=== PATIENT | female | born 1945 | race Caucasian/White ===

== ENCOUNTER 2016-11-03 13:34 | Emergency (ER) | payer MEDICARE ==
[2016-11-03 13:59] VITALS: BP 148/106
--- OUTSIDE RECORDS SUMMARY | 2016-11-03 14:28 | XMS REPORT | Continuity of Care Document ---
:1945 Author Organization [facility] ([facility]) Address [place] [address] Phone [phone] Care Team Providers Name Role Phone Jonn, Ajit Primary Care Provider [phone] Source Comments This disclosure is being made pursuant to the Care Everywhere program, applicable federal and state laws, and may not contain all informaitonavailable regarding this patient.[facility] ([facility]) Active Allergies and Adverse Reactions No Known Allergies Current Medications Prescription Sig. Disp. Refills Start Date End Date Status buPROPion Take 1 Tab by mouth 10/15/2008 Active (WELLBUTRIN-SR) 150 2 times daily mg SR tablet 12 hour nitroglycerin 0.[address] 1 tablet 10/18/2008 Active SL tablet (0.4MG) by Sublingual route at the first sign of an attack; may repeat every 5 minutes, until relief; if pain persists after a total of 3 tablets in 15 minutes, promptmedical attentionis recommended aspirin 81 mg EC Take 81 mg by mouth Active tablet daily levothyroxine 50 mcg Take 50 mcg by mouth Active tablet every morning before breakfast omeprazole 40 mg Take 40 mg by mouth Active enteric coated daily capsule lamoTRIgine 100 mg take 1 tablet (100 3 12/06/2015 Active tablet mg) by oral route 2 times per day for 30 days LORazepam 1 mg Take 1 mg by mouth Active tablet every 12 hours as needed. atenolol 50 mg Take 1 tablet (50 mg 90 tablet 3 12/18/2015 Active tablet total) by mouth daily. atorvastatin 40 mg Take 1 tablet (40 mg 90 tablet 3 12/23/2015 Active tablet total) by mouth daily. Active Problems Problem Noted Date CAD in [place] artery 12/16/2015 Overview: Formatting of this note may be different from the original. 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: Cath (EF.70, NWMA, 50% Ostial LM, 90% Distal CX, 30% Ostial RCA, 50% Mid PLB, Right Dominant) - 10/15/2008 PCI (Stent: Distal CX (2.5x12 Express 2)) - 10/17/2008 STRESS TESTS: MPI (EF.60, Abnormal Abnormal stress test: 1) Very small lateral infarct at the apex, 2) No inducible ischemia, 3) LVEF 60%) - 11/15/2008 Essential hypertension 12/16/2015 Pure hypercholesterolemia 12/16/2015 Social History Tobacco Use Types Packs/Day Years Used Date Current Every Day Smoker Last Filed Vital Signs Vital Sign Reading Time Taken Blood Pressure 140/76 12/18/2015 10:42 AM CDT Pulse 64 12/18/2015 10:42 AM CDT Temperature - - Respiratory Rate - - Height 1.676 m (5' 6") 12/18/2015 10:42 AM CDT Weight 70.761 kg (156 lb) 12/18/2015 10:42 AM CDT Body Mass Index 25.19 12/18/2015 10:42 AM CDT Oxygen Saturation - - Plan of Care Date Type Specialty Providers Description 12/16/2016 Appointment [facility] Cuadra, Chief Comp: Patient MD Reported Reason For [address] [place] [address] [phone] (Fax) Health Maintenance Due Date Last Done Comments HCV Screening 1945 Hepatitis B Vaccine (1 of 3 - Primary Series) 1945 Tdap Vaccine 1956 Lipid Disorder Screening 1963 Td Vaccine 1963 Mammogram 1985 Colonoscopy 1995 Zoster Vaccine 2005 Osteoporosis Screening (DXA Bone Density) 2010 Pneumococcal Vaccine (1 of 2 - PCV13) 2010 Influenza Vaccine: Seasonal (#1) 01/13/2016 Results from Last 3 Months Not on file
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
[2016-11-03 14:53] LABS: Hematocrit 44.7 % (37.0-47.0); Hemoglobin 14.3 gm/dL (12.5-16.0); Mean Cell Volume 97.4 fl (78-100); Mean Corpuscular Hemoglobin 31.2 pg (27-31); Mean Platelet Volume 11.4 fl (6.0-9.5); Neutrophil # 4.9 K/mm3 (1.3-6.0); Neutrophil % 63.9 % (42-75.0); Platelet Count 244 K/mm3 (150-450); Red Blood Count 4.59 M/mm3 (4.2-5.4); Red Cell Distribution Width 12.8 % (11.5-14.0); White Blood Count 7.7 K/mm3 (4.0-10.5)
[2016-11-03 15:02] LABS: Urine Bilirubin Negative (NEGATIVE); Urine Blood Negative /ul (NEGATIVE); Urine Ketone Negative (NEGATIVE); Urine Nitrite Negative (NEGATIVE); Urine Protein Negative (NEGATIVE); Urine Specific Gravity <=1.005 SP.GR. (1.005-1.010); Urine Urobilinogen Normal (NORMAL)
[2016-11-03 15:13] LABS: Urine Appearance Clear; Urine Bacteria None Seen; Urine Color Yellow; Urine RBC None Seen /hpf (0-5); Urine WBC None Seen /hpf (0-5)
[2016-11-03 15:14] LABS: Anion Gap 14.7 mmol/L (6.8-13.8); BUN/Creatinine Ratio 14.3 (9.0-21.6); Bilirubin, Total 0.5 mg/dL (0.0-1.1); Ca. Corrected For Albumin 9.5 mg/dL (8.4-10.2); Calcium * 9.8 mg/dL (7.9-10.9); Carbon Dioxide 27.3 mmol/L (24-32.6); TSH * 1.103 uIU/mL (0.358-3.74); Total Protein 8.5 gm/dL (6.2-8.2)
[2016-11-03 15:17] LABS: Cocaine Ur Negative (NEGATIVE); Urine Barbiturate Negative (NEGATIVE); Urine Benzodiazepines Negative (NEGATIVE); Urine Opiates Negative (NEGATIVE); Urine PCP Negative (NEGATIVE); Urine THC Negative (NEGATIVE)
[2016-11-03 15:21] LABS: Prothrombin Time (Patient) 10.8 Seconds (9.4-11.4)
[2016-11-03 15:36] LABS: INR 1.04 INR (0.90-1.10); Partial Thrombolplastin Time 19.8 Seconds (24-32)
== END 2016-11-03 14:58 | disposition left against medical advice (07) ==
LOC: ER 13:34
DX: R41.82 Altered mental status, unspecified (principal); F17.200 Nicotine dependence, unspecified, uncomplicated; Z53.29 Procedure and treatment not carried out because of patient's decision for other reasons; E03.9 Hypothyroidism, unspecified; F32.9 Major depressive disorder, single episode, unspecified; I10 Essential (primary) hypertension; Z95.5 Presence of coronary angioplasty implant and graft

== ENCOUNTER 2016-11-05 18:47 | Emergency (ER) | payer MEDICARE ==
[2016-11-05 19:11] LABS: Hematocrit 40.4 % (37.0-47.0); Hemoglobin 13.1 gm/dL (12.5-16.0); Mean Cell Volume 96.4 fl (78-100); Mean Corpuscular Hemoglobin 31.3 pg (27-31); Mean Corpuscular Hgb Conc 32.4 g/dl (32-36); Mean Platelet Volume 11.1 fl (6.0-9.5); Neutrophil # 4.7 K/mm3 (1.3-6.0); Neutrophil % 61.8 % (42-75.0); Platelet Count 222 K/mm3 (150-450); Red Blood Count 4.19 M/mm3 (4.2-5.4); White Blood Count 7.6 K/mm3 (4.0-10.5)
[2016-11-05 19:23] LABS: Urine Bilirubin Negative (NEGATIVE); Urine Blood Negative /ul (NEGATIVE); Urine Ketone Negative (NEGATIVE); Urine Nitrite Negative (NEGATIVE); Urine Protein Negative (NEGATIVE); Urine Specific Gravity <=1.005 SP.GR. (1.005-1.010); Urine Urobilinogen Normal (NORMAL)
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
--- OUTSIDE RECORDS SUMMARY | 2016-11-05 19:24 | XMS REPORT | Continuity of Care Document ---
:1945 Author Organization [facility] ([facility]) [place] [address] Phone [phone] Care Team Providers Name Role Phone Jonn, Ajit Primary Care Provider [phone] Source Comments This disclosure is being made pursuant to the Care Everywhere program, applicable federal and state laws, and may not contain all informaitonavailable regarding this patient.[facility] ([facility]) Active Allergies and Adverse Reactions No Known [...] Active Problems Problem Noted Date CAD in [place] artery 12/16/2015 Overview: Formatting of this note may be different from the original. 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
[2016-11-05 19:42] LABS: ALT 22 U/L (19-67); AST 24 U/L (0-48); Albumin * 3.6 gm/dl (3.4-5.0); Alkaline Phosphatase * 104 U/L (50-170); BUN/Creatinine Ratio 12.7 (9.0-21.6); Bilirubin, Total 0.3 mg/dL (0.0-1.1); Blood Urea Nitrogen 14 mg/dL (3-23); Ca. Corrected For Albumin 9.6 mg/dL (8.4-10.2); Calcium * 9.6 mg/dL (7.9-10.9); Carbon Dioxide 26.9 mmol/L (24-32.6); Chloride 107 mmol/L (97-106); Glucose * 97 mg/dL (70-110); Potassium 3.9 mmol/L (3.4-4.6); Sodium 143 mmol/L (132-142); Total Protein 7.7 gm/dL (6.2-8.2)
[2016-11-05 19:42] LABS: Urine Appearance Clear; Urine Bacteria None Seen; Urine Color Yellow; Urine RBC None Seen /hpf (0-5); Urine WBC None Seen /hpf (0-5)
[2016-11-05 19:45] LABS: Cocaine Ur Negative (NEGATIVE); Urine Barbiturate Negative (NEGATIVE); Urine Benzodiazepines Negative (NEGATIVE); Urine Opiates Negative (NEGATIVE); Urine PCP Negative (NEGATIVE); Urine THC Negative (NEGATIVE)
[2016-11-05 20:49] VITALS: BP 182/67
== END 2016-11-05 21:25 | disposition home or self-care (01) ==
LOC: ER 18:47
DX: F31.9 Bipolar disorder, unspecified (principal); R40.4 Transient alteration of awareness
CPT/HCPCS: 36415; 70450; 80053; 80307; 81001; 84443; 85025; 94762; 99282; G0481

== ENCOUNTER 2016-11-06 02:48 | Emergency (ER) | payer MEDICARE ==
--- NOTE | 2016-11-06 03:01 | ERNOTE ---
Medical Problem HPI - General Chief Complaint: General Assessment Source: patient Exam Limitations: clinical condition - Immun/Allergies/Home Medications Immunizations: IMMUNIZATION HX Immunizations Up to Date Yes History of Influenza Vaccine Yes Hx Pneumococcal Vaccination Yes Allergies/Adverse Reactions: Allergies perfume Allergy (Mild, Verified 11/06/16 03:00) Headache soap Allergy (Mild, Verified 11/06/16 03:00) Headache Home Medications: HOME MEDICATIONS Atenolol [Tenormin] 50 mg PO DAILY 10/30/13 [Last Taken 10/30/13] Levothyroxine Sodium [Unithroid] 50 mcg PO DAILY 10/30/13 [Last Taken 10/30/13] Bupropion HCl [Wellbutrin Xl] 150 mg PO DAILY 11/14/13 [Last Taken Unknown] Omeprazole [Prilosec] 60 mg PO DAILY 10/28/14 [Last Taken Unknown] Atorvastatin Calcium [Lipitor] 40 mg PO DAILY 03/04/16 [Last Taken Unknown] lamoTRIgine [Lamictal] 100 mg PO BID 11/03/16 [Last Taken Unknown] Potassium Chloride [Klor-Con 10] 10 meq PO BID 11/05/16 [Last Taken Unknown] - History of Present History Narrative: Pt states she became short of breath and felt like her throat was closing Timing: intermittent, resolved prior to arrival Severity: mild Review of Systems - Review of Systems Constitutional: Present: recent illness EYE: Present: no symptoms reported ENT: Present: throat swelling Respiratory: Present: shortness of breath Cardiology: Present: no symptoms reported Gastrointestinal/Abdominal: Present: no symptoms reported Genitourinary: Present: no symptoms reported Musculoskeletal: Present: no symptoms reported Skin: Present: no symptoms reported Neurological: Present: no symptoms reported Endocrine: Present: no symptoms reported Hematologic/Lymphatic: Present: no symptoms reported Psych: Present: no symptoms reported - Patient's Past Medical History Patient History - Medical: Anxiety, Arthritis, Bipolar, Depression, GERD, Hypothyroidism Patient History - Cardiac/Respiratory: Hypertension, Myocardial Infarction Patient History - Cancer: No Hx of Cancer Patient History - Surgical Procedures: Appendectomy, Cholecystectomy, Cardiac stent, Hysterectomy Patient History - Other: None - Social History Living Situations: home Abuse History: No History of abuse Psych History: Hx of Depression Smoking Status: Current every day smoker Alcohol Use: rarely Drug Use: none - Immunizations Immunizations Up to Date: Yes Hx Pneumococcal Vaccination: Yes History of Influenza Vaccine: Yes Physical Exam - Physical Exam General Appearance: Present: wd/wn, alert, no apparent distress Eye Exam: Normal inspection: bilateral, PERRL: bilateral Ears, Nose, Throat: Present: normal ENT inspection, normal pharynx. Absent: tonsillar swelling Neck: Present: normal inspection, nontender, supple Respiratory: Present: no respiratory distress, normal breath sounds, no accessory muscle use, lungs clear Cardiovascular/Chest: Present: regular rate, rhythm, no murmur, normal peripheral pulses Gastrointestinal/Abdominal: Present: normal bowel sounds, nontender, nondistended Extremity Exam: Present: normal inspection, normal range of motion, no edema Neurological Exam: Present: alert, oriented, normal mood/affect, no motor/ sensory deficits Skin Exam: Present: normal color, warm/dry Lymphatic Exam: Present: no adenopathy ED Progress - Results and Orders Patient's Lab Results:: I have reviewed the patient's lab results. Results and Orders: Laboratory Tests 11/06/16 03:07 Troponin I Less than 0.017 B-Natriuretic Peptide 189 - Vital Signs Patient's Vital Signs:: I have reviewed the patient's vital signs. Vital Signs: Vital Signs 11/05/16 11/06/16 21:25 02:49 Temperature 37.0 C 36.9 C Pulse Rate 79 Respiratory 18 Rate Blood Pressure 182/67 146/77 O2 Sat by Pulse 99 Oximetry - X-Ray X-Ray #1 X-Ray: chest Interpretation: Interp. by me X-ray Comments: No effusions or infiltrate - Progress/Reassessment Chief Complaint: General Assessment Departure - Departure Clinical Impression: Shortness of breath Disposition: Home Follow Up Needed Condition: Good Additional Instructions: See your regular doctor next week for follow up. See Dr. Pérez as soon as possible to discuss your medications and if you need a change
[2016-11-06 03:40] LABS: BNP * 189 pg/mL (5-325); Troponin I Less than 0.017 ng/ml (0.00-0.10)
--- OUTSIDE RECORDS SUMMARY | 2016-11-06 04:28 | XMS REPORT | Continuity of Care Document ---
:1945 Author Organization [facility] ([facility]) Address [place] [address] Phone [phone] Care Team Providers Name Role Phone Jonn, Ajit Primary Care Provider [phone] Source Comments This disclosure is being made pursuant to the Care Everywhere program, applicable federal and state laws, and may not contain all informaitonavailable regarding this patient.[facility] ([facility]) Active Allergies and Adverse Reactions [...] Active Problems Problem Noted Date CAD in [place] artery 12/16/2015 Overview: Formatting of this note may be different from the original. 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
[2016-11-06 05:35] VITALS: BP 137/85
== END 2016-11-06 05:26 | disposition home or self-care (01) ==
LOC: ER 02:48
DX: R06.02 Shortness of breath (principal); I10 Essential (primary) hypertension; E03.9 Hypothyroidism, unspecified; I25.2 Old myocardial infarction; Z72.0 Tobacco use

== ENCOUNTER 2016-11-09 02:11 | Observation (INO) | payer MEDICARE ==
[2016-11-09 02:34] LABS: Urine Bilirubin Negative (NEGATIVE); Urine Blood Negative /ul (NEGATIVE); Urine Ketone Negative (NEGATIVE); Urine Nitrite Negative (NEGATIVE); Urine Protein Negative (NEGATIVE); Urine Specific Gravity <=1.005 SP.GR. (1.005-1.010); Urine Urobilinogen Normal (NORMAL)
[2016-11-09 02:42] LABS: Urine Appearance Clear; Urine Bacteria None Seen; Urine Color Pale Yellow; Urine RBC None Seen /hpf (0-5); Urine WBC None Seen /hpf (0-5)
--- NOTE | 2016-11-09 02:48 | ERNOTE ---
Neuro HPI ER Record Date of Service: 11/09/16 Presenting Symptoms: confusion Source: patient Exam Limitations: clinical condition Immunizations: IMMUNIZATION HX Immunizations Up to Date Yes History of Influenza Vaccine Yes Hx Pneumococcal Vaccination No Allergies/Adverse Reactions: Allergies Allergy/AdvReac Type Severity Reaction Status Date / Time perfume Allergy Mild Headache Verified 11/09/16 02:20 soap Allergy Mild Headache Verified 11/09/16 02:20 Home Medications: HOME MEDICATIONS Atenolol [Tenormin] 50 mg PO DAILY 10/30/13 [Last Taken 10/30/13] Levothyroxine Sodium [Unithroid] 50 mcg PO DAILY 10/30/13 [Last Taken 10/30/13] Bupropion HCl [Wellbutrin Xl] 150 mg PO DAILY 11/14/13 [Last Taken Unknown] Atorvastatin Calcium [Lipitor] 40 mg PO DAILY 03/04/16 [Last Taken Unknown] Potassium Chloride [Klor-Con 10] 10 meq PO BID 11/05/16 [Last Taken Unknown] Esomeprazole Magnesium [Nexium] 40 mg PO DAILY 11/09/16 [Last Taken Unknown] - History of Present Illness Narrative: Patient is a 71-year-old female with multiple visits to the ER over the last 2 weeks for confusion. Patient lives alone alert to person place and time but admits to being confused in thought. Today she followed somebody in in her car and the individual became concerned call in the police because patient not sure why she was following her. She denies any pain, recent illness, or history of above. She remembers coming to the emergency room for the visit above and has no insight into why she is not acting her normal self. Patient denies fever or chills. She denies any changes in her bowels. She denies any changes in her urinary habits. Patient denies any recent falls. She states she rarely drinks alcohol and does not use illicit drugs. Patient denies taking excessive prescription medications and states she has been compliant with those that have been prescribed. Patient brought to the emergency room by local police. Date (Duration): 11/09/16 Time (Timing): 02:45 Onset: gradual onset Severity: moderate Context: other - no known injury reported. - Character of Deficits New weakness: Present: other - no weakness present Altered sensation: Present: other - patient seems to have increased sense of smell reporting noticing lye smell in the air at time of arrival Additional Deficits: Present: other - main problem is slow thought Process Baseline Cognition: Present: alert, oriented x 4 Baseline Gait: Present: walks w/o assistance Associated Symptoms: Reports: confused Prior Treament: Reports: recently seen, similar symptoms before Review of Systems - Review of Systems Constitutional: Present: no symptoms reported EYE: Present: no symptoms reported ENT: Present: no symptoms reported Respiratory: Present: no symptoms reported Cardiology: Present: no symptoms reported Gastrointestinal/Abdominal: Present: no symptoms reported Genitourinary: Present: no symptoms reported Musculoskeletal: Present: no symptoms reported Skin: Present: no symptoms reported Neurological: Present: other - patient has had confusion for at least the last few weeks. Endocrine: Present: no symptoms reported Hematologic/Lymphatic: Present: no symptoms reported Psych: Present: no symptoms reported - Patient's Past Medical History Patient History - Medical: Anxiety, Arthritis, Bipolar, Depression, GERD, Hypothyroidism Patient History - Cardiac/Respiratory: Hypertension, Myocardial Infarction Patient History - Cancer: No Hx of Cancer Patient History - Surgical Procedures: Appendectomy, Cholecystectomy, Cardiac stent, Hysterectomy Patient History - Other: None - Family History Mother Family History - Medical: Father Family History - Medical: - Social History Living Situations: alone Abuse History: No History of abuse Psych History: Hx of Anxiety, Hx of Depression, Hx of Bipolar Disorder Smoking Status: Current every day smoker Have you smoked in the past 12 months: Yes Do you dip or chew tobacco: No Alcohol Use: rarely Drug Use: none - Immunizations Immunizations Up to Date: Yes Hx Pneumococcal Vaccination: No History of Influenza Vaccine: Yes ED Progress - Vital Signs Vital Signs: Vital Signs 11/09/16 11/09/16 02:13 02:24 Temperature 36.9 C Pulse Rate 78 76 Respiratory 12 17 Rate Blood Pressure 155/80 155/80 O2 Sat by Pulse 99 100 Oximetry - CT/Ultrasound CT/Ultrasound Narrative: CAT scan head performed showing global atrophy with ventriculomegaly somewhat this portion to the degree of sulcal prominence. Consider possible normal pressure hydrocephalus. Periventricular and deep white matter hypodensities consistent with chronic microvascular ischemic changes. - Progress/Reassessment Chief Complaint: Altered Mental Status Plan - Plan Plan: Patient admitted and primary provided contacted. Departure Clinical Impression: Confusion - Departure Disposition: [facility] Condition: Good
[2016-11-09 02:50] LABS: Cocaine Ur Negative (NEGATIVE); Urine Barbiturate Negative (NEGATIVE); Urine Benzodiazepines Negative (NEGATIVE); Urine Opiates Negative (NEGATIVE); Urine PCP Negative (NEGATIVE); Urine THC Negative (NEGATIVE)
[2016-11-09 03:18] LABS: Hemoglobin 13.3 gm/dL (12.5-16.0); Mean Corpuscular Hemoglobin 30.7 pg (27-31); Mean Corpuscular Hgb Conc 31.7 g/dl (32-36); Mean Platelet Volume 11.5 fl (6.0-9.5); Neutrophil # 4.4 K/mm3 (1.3-6.0); Neutrophil % 64.2 % (42-75.0); Platelet Count 214 K/mm3 (150-450); Red Blood Count 4.33 M/mm3 (4.2-5.4); Red Cell Distribution Width 12.9 % (11.5-14.0); White Blood Count 6.8 K/mm3 (4.0-10.5)
[2016-11-09 03:42] LABS: Albumin * 3.6 gm/dl (3.4-5.0); Anion Gap 11.5 mmol/L (6.8-13.8); BUN/Creatinine Ratio 16.2 (9.0-21.6); Bilirubin, Total 0.3 mg/dL (0.0-1.1); Ca. Corrected For Albumin 9.5 mg/dL (8.4-10.2); Calcium * 9.5 mg/dL (7.9-10.9); Carbon Dioxide 29.4 mmol/L (24-32.6); Potassium 3.9 mmol/L (3.4-4.6); TSH * 0.93 uIU/mL (0.358-3.74); Total Protein 7.6 gm/dL (6.2-8.2)
[2016-11-09] MEDS ORDERED: NORMAL SALINE 1,000 ML IV PRN (04:24)
--- OUTSIDE RECORDS SUMMARY | 2016-11-09 04:35 | XMS REPORT | Continuity of Care Document ---
:1945 Author Organization [facility] ([facility]) [place] [address] Phone [phone] Care Team Providers Name Role Phone Jonn, Ajit Primary Care Provider [phone] Source Comments This disclosure is being made pursuant to the Care Everywhere program, applicable federal and state laws, and may not contain all informaitonavailable regarding this patient.[facility] ([facility]) Active Allergies and Adverse Reactions No Known [...] Active Problems Problem Noted Date CAD in [place] artery 12/16/2015 Overview: Formatting of this note may be different from the original. 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
--- OUTSIDE RECORDS SUMMARY | 2016-11-09 04:52 | XMS REPORT | Continuity of Care Document ---
:1945 Author Organization [facility] ([facility]) Address [place] [address] Phone [phone] Care Team Providers Name Role Phone Jonn, Ajit Primary Care Provider [phone] Source Comments This disclosure is being made pursuant to the Care Everywhere program, applicable federal and state laws, and may not contain all informaitonavailable regarding this patient.[facility] ([facility]) Active Allergies and Adverse Reactions No Known [...] Active Problems Problem Noted Date CAD in [place] artery 12/16/2015 Overview: Formatting of this note may be different from the original. 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
[2016-11-09] MEDS: NORMAL SALINE 1,000 ML IV PRN ×2 (05:29→09:32)
--- NOTE | 2016-11-09 05:57 | HP ---
Chief Complaint - Chief Complaint Date of Service: 11/09/16 Time of Service: 06:17 Chief Complaint: acute delirium History of Present Illness: Patient is a 71-year-old female pt of Dr. Lunsford with a PMH significant for: bipolar disorder, HTN, hypothyroidism, anxiety, depressing, and previous GA who presented to the ER once again this evening with multiple prior visits to the ER over the last 2 weeks for confusion. Patient lives alone alert to person place and time but admits to being confused in thought. Today she followed somebody to her car and the individual became concerned and called the police because patient not sure why she was following her when questioned. She denies any pain, recent illness, or history of the above. She in fact however remember coming to the emergency room for her multiple prior visit and has no insight into why she is not acting her normal self. Patient denies fever or chills, changes in her bowel or bladder habits, recent falls. She states she rarely drinks alcohol and does not use illicit drugs. Patient denies taking excessive prescription medications and states she has been compliant with those that have been prescribed. Work up in ER once again was essentially negative. CT of head results as followed: global atrophy with ventriculomegaly somewhat this portion to the degree of sulcal prominence. Consider possible normal pressure hydrocephalus. Periventricular and deep white matter hypodensities consistent with chronic microvascular ischemic changes. Laboratory findings were unremarkable except for an elevated ESR of 58. UA and drug screen negative. She was started on a 1L bolus and will be admitted to observation for further evaluation and treatment. - Patient's Past Medical History Patient History - Medical: Anxiety, Arthritis, Bipolar, Depression, GERD, Hypothyroidism Patient History - Cardiac/Respiratory: Hypertension, Myocardial Infarction Patient History - Cancer: No Hx of Cancer Patient History - Surgical Procedures: Appendectomy, Cholecystectomy, Cardiac stent, Hysterectomy Patient History - Other: None - Family History Mother Family History - Medical: Father Family History - Medical: - Social History Living Situations: alone Abuse History: No History of abuse Psych History: Hx of Anxiety, Hx of Depression, Hx of Bipolar Disorder Smoking Status: Current every day smoker Have you smoked in the past 12 months: Yes Do you dip or chew tobacco: No Alcohol Use: rarely Drug Use: none - Immunizations Immunizations Up to Date: Yes Hx Pneumococcal Vaccination: No History of Influenza Vaccine: Yes Review Of Systems (GEN) - Review of Systems Generalized/Overall Review: Present: No Symptoms Reported EENTM: Present: No Symptoms Reported Respiratory: Present: No Symptoms Reported Cardiac: Present: No Symptoms Reported Abdominal: Present: No Symptoms Reported Genitourinary: Present: No Symptoms Reported Musculoskeletal: Present: No Symptoms Reported Neurological: Present: No Symptoms Reported Skin: Present: No Symptoms Reported Endocrine: Present: No Symptoms Reported Immunizations: IMMUNIZATION HX Immunizations Up to Date Yes History of Influenza Vaccine Yes Hx Pneumococcal Vaccination No Allergies/Adverse Reactions: Allergies Allergy/AdvReac Type Severity Reaction Status Date / Time perfume Allergy Mild Headache Verified 11/09/16 02:20 soap Allergy Mild Headache Verified 11/09/16 02:20 Home Medications: HOME MEDICATIONS Atenolol [Tenormin] 50 mg PO DAILY 10/30/13 [Last Taken 10/30/13] Levothyroxine Sodium [Unithroid] 50 mcg PO DAILY 10/30/13 [Last Taken 10/30/13] Bupropion HCl [Wellbutrin Xl] 150 mg PO DAILY 11/14/13 [Last Taken Unknown] Omeprazole [Prilosec] 60 mg PO DAILY 10/28/14 [Last Taken Unknown] Atorvastatin Calcium [Lipitor] 40 mg PO DAILY 03/04/16 [Last Taken Unknown] lamoTRIgine [Lamictal] 100 mg PO BID 11/03/16 [Last Taken Unknown] Potassium Chloride [Klor-Con 10] 10 meq PO BID 11/05/16 [Last Taken Unknown] Exam - Exam Vital Signs: Vital Signs - Last Taken Temp 36.9 C 11/09/16 02:13 Pulse 74 11/09/16 05:33 Resp 16 11/09/16 05:33 BP 138/72 11/09/16 05:33 Pulse Ox 96 11/09/16 05:33 Constitutional: Present: Alert, Oriented x3, Cooperative, No distress ENT Exam: Present: normal ENT inspection Eye Exam: bilateral eye: normal inspection, PERRL Back Exam: Present: normal inspection Respiratory: Present: chest non-tender, lungs clear, normal breath sounds, no respiratory distress, no accessory muscle use Cardiovascular/Chest: Present: normal peripheral pulses, regular rate, rhythm, no chest tenderness, no edema, no gallop, no JVD, no murmur Peripheral Pulses: dorsalis-pedis (R): 2+, dorsalis-pedis (L): 2+, radial (R): 2 +, radial (L): 2+ Abdomen: Present: Normal bowel sounds, soft, nontender, nondistended, no rebound tenderness, no hepatospenomegaly Extremity: Present: normal range of motion, non-tender, normal inspection, no pedal edema, no calf tenderness, normal capillary refill Skin Exam: Present: normal color, warm/dry, no cyanosis Lymphatic: Present: no adenopathy Neurologic: Present: no motor/sensory deficits, alert, normal mood/affect, oriented x 3 Appearance: Present: appropriate appearance, appropriate insight, neat, no memory impairment Eye contact: Present: cooperative, good eye contact, normal speech Thoughts: Present: normal thought pattern, no apparent hallucination Diagnostic Studies: Laboratory Results Laboratory Tests 11/09/16 11/09/16 11/09/16 03:10 03:10 03:10 WBC Hgb Hct Plt Count ESR 58 H Sodium 144 H Potassium 3.9 Chloride 107 H BUN 17 Creatinine 1.05 Random Glucose 102 Lactic Acid, Venous 1.4 Total Bilirubin 0.3 AST 20 ALT 24 Alkaline Phosphatase 96 TSH 0.930 11/09/16 03:15 WBC 6.8 Hgb 13.3 Hct 42.0 Plt Count 214 ESR Sodium Potassium Chloride BUN Creatinine Random Glucose Lactic Acid, Venous Total Bilirubin AST ALT Alkaline Phosphatase TSH Assessment/Plan - Assessment/Plan (1) Mental status change Assessment: PT with multiple episodes of acute delirium over the past two weeks. Is able to recall specific events to each time, however unsure what leads her to her confused state or when she becomes confused. Oriented x3 during examination, able to recall from short and snf memory. No other neuro deficits noted. She is agreeable to stay and be further evaluated. No s/s of hydrocephalus, no urinary or gait impairments. Suspect that this could be more of a mental than medical issue. Sees Dr. Pérez, states that she is consistent with taking her prescribed medication. Will consult him for further recommendations. - CT/Ultrasound CT/Ultrasound Narrative: CAT scan head performed showing global atrophy with ventriculomegaly somewhat this portion to the degree of sulcal prominence. Consider possible normal pressure hydrocephalus. Periventricular and deep white matter hypodensities consistent with chronic microvascular ischemic changes. Plan: -Consult Dr. Pérez-spoke with Osiris Almanza as Beto is out of town. Problem: Acute Qualifiers: Altered mental status type: transient alteration of awareness Qualified Code(s): R40.4 - Transient alteration of awareness (2) Bipolar 1 disorder Assessment: As above Problem: Chronic (3) CAD (coronary artery disease) Assessment: Stable Plan: -Continue home medications -Healthy heart diet Problem: Chronic Qualifiers: Associated angina: without angina (4) GERD (gastroesophageal reflux disease) Assessment: Stable Plan: -Continue home medications Problem: Chronic (5) HTN (hypertension) Assessment: Stable Plan: -VS Q4H -Continue home medications Problem: Chronic Qualifiers: Hypertension type: essential hypertension Qualified Code(s): I10 - Essential (primary) hypertension
[2016-11-09] MEDS: PANTOPRAZOLE SODIUM 40 MG TABLET.EC PO SCH (07:45)
[2016-11-09] MEDS: LEVOTHYROXINE SODIUM 50 MCG TABLET PO SCH (07:45)
[2016-11-09] MEDS: ATENOLOL 50 MG TABLET PO SCH (08:05)
[2016-11-09] MEDS: buPROPion HCL 150 MG TAB.SR.24H PO SCH (08:05)
[2016-11-09] MEDS: POTASSIUM CHLORIDE 10 MEQ TABLET.SA PO SCH ×2 (08:05→16:14)
[2016-11-09] MEDS ORDERED: ATORVASTATIN CALCIUM 40 MG TABLET PO SCH (09:00)
[2016-11-09] MEDS ORDERED: lamoTRIgine 100 MG TABLET PO SCH (09:00)
[2016-11-09] MEDS: LORATADINE 10 MG TABLET PO SCH (09:07)
[2016-11-09] MEDS: ROSUVASTATIN CALCIUM 10 MG TABLET PO SCH (20:41)
[2016-11-09] MEDS ORDERED: MAGNESIUM HYDROXIDE 30 ML UDC PO PRN (20:59)
--- NOTE | 2016-11-10 05:45 | DS ---
(1) Mental status change Problem: Acute Qualifiers: Altered mental status type: transient alteration of awareness Qualified Code(s): R40.4 - Transient alteration of awareness (2) Bipolar 1 disorder Problem: Chronic (3) CAD (coronary artery disease) Problem: Chronic Qualifiers: Associated angina: without angina (4) GERD (gastroesophageal reflux disease) Problem: Chronic (5) HTN (hypertension) Problem: Chronic Qualifiers: Hypertension type: essential hypertension Qualified Code(s): I10 - Essential (primary) hypertension Description of Stay: Patient is a 71-year-old female pt of Dr. Lunsford with a PMH significant for: bipolar disorder, HTN, hypothyroidism, anxiety, depressing, and previous [place] who was admitted with acute mental status change after multiple visits to the ER over the last 2 weeks for confusion. Patient lives alone alert to person place and time but admits to being confused in thought. The day of admission she followed somebody to her car and the individual became concerned and called the police because patient not sure why she was following her when questioned. She denies any pain, recent illness, or history of the above. She in fact however remember coming to the emergency room for her multiple prior visit and has no insight into why she is not acting her normal self. Patient denies fever or chills, changes in her bowel or bladder habits, recent falls. She states she rarely drinks alcohol and does not use illicit drugs. Patient denies taking excessive prescription medications and states she has been compliant with those that have been prescribed. Work up in ER once again was essentially negative. CT of head results as followed: global atrophy with ventriculomegaly somewhat this portion to the degree of sulcal prominence. Consider possible normal pressure hydrocephalus. Periventricular and deep white matter hypodensities consistent with chronic microvascular ischemic changes. Laboratory findings were unremarkable except for an elevated ESR of 58. UA and drug screen negative. During her admission she remained alert and oriented x3, no episodes of confusion. Procedures Performed: none Discharge Disposition: Home self care Disposition: Home self-care Condition: Good Discharge Activity: Activity as tolerated Discharge Diet: General/regular food Referrals: Ajit Lunsford MD [Primary Care Provider] - Complete Home Medications List: Complete Home Medication List: Atenolol [Tenormin] 50 mg PO DAILY 10/30/13 Levothyroxine Sodium [Unithroid] 50 mcg PO DAILY 10/30/13 Bupropion HCl [Wellbutrin Xl] 150 mg PO DAILY 11/14/13 Atorvastatin Calcium [Lipitor] 40 mg PO DAILY 03/04/16 Potassium Chloride [Klor-Con 10] 10 meq PO BID 11/05/16 Esomeprazole Magnesium [Nexium] 40 mg PO DAILY 11/09/16
[2016-11-10] MEDS: LEVOTHYROXINE SODIUM 50 MCG TABLET PO SCH (07:22)
[2016-11-10] MEDS: PANTOPRAZOLE SODIUM 40 MG TABLET.EC PO SCH (07:22)
--- NOTE | 2016-11-10 08:18 | PN ---
Subjective - Date and Time Seen Date: 11/10/16 Time: 08:15 Subjective Narrative: Feeling better but still unable to explain why she is in the hospital Objective - Review of Systems Generalized/Overall Review: Reports: No Symptoms Reported EENTM: Reports: No Symptoms Reported Respiratory: Reports: No Symptoms Reported Cardiac: Reports: No Symptoms Reported Abdominal: Reports: No Symptoms Reported Genitourinary Symptoms: Reports: No Symptoms Reported Neurological: Reports: No Symptoms Reported Skin: Reports: No Symptoms Reported - Vitals Vitals: Last Vital Signs Temp 36.6 C 11/10/16 07:25 Pulse 66 11/10/16 07:25 Resp 18 11/10/16 07:25 BP 150/69 11/10/16 07:25 Pulse Ox 93 11/10/16 07:25 - Exam Constitutional: Present: Alert, Oriented x3, Cooperative Respiratory: Present: lungs clear, normal breath sounds Cardiovascular/Chest: Present: regular rate, rhythm Abdomen: Present: soft, nontender Extremity: Present: normal range of motion Skin Exam: Present: normal color, warm/dry Assessment/Plan - Problems/Diagnosis (1) Hydrocephalus Problem: Acute Narrative: We'll order MRI for possible normal pressure hydrocephalus (2) Mental status change Problem: Acute Qualifiers: Altered mental status type: transient alteration of awareness Qualified Code(s): R40.4 - Transient alteration of awareness Narrative: Psychiatry consultation is still pending (3) CAD (coronary artery disease) Problem: Chronic Qualifiers: Associated angina: without angina
[2016-11-10] MEDS: POTASSIUM CHLORIDE 10 MEQ TABLET.SA PO SCH ×2 (08:30→16:49)
[2016-11-10] MEDS: ATENOLOL 50 MG TABLET PO SCH (08:30)
[2016-11-10] MEDS: buPROPion HCL 150 MG TAB.SR.24H PO SCH (08:30)
[2016-11-10] MEDS: LORATADINE 10 MG TABLET PO SCH (08:34)
[2016-11-10] MEDS ORDERED: ESOMEPRAZOLE MAGNESIUM 40 MG PO SCH (09:00)
--- NOTE | 2016-11-10 11:36 | PN ---
Subjective - Date and Time Seen Date: 11/10/16 Time: 11:05 Subjective Narrative: Patient was attempting to leave hospital when I arrived for consult. She was walking down hallway to exit in a hospital gown, carrying her winter coat and sunglasses as she headed to the exit. Two nurses were attempting to redirect. Patient stated that she saw something in one of the cabinets and felt that it should not be there (the lift system) and everything was wrong so she needed to leave. She was escorted back to her room and reassured that what she saw was in all the patient rooms and the nurses demonstrated how to work this equipment to reassure her. Objective Objective Narrative: Patient is alert and oriented x 3. She does have some intermittent confusion. She states that she loses gaps of time. She states that she does not know what happens to her during this lost time. States that she is taking her medications as prescribed. She talks about her past "mental breakdown" which she states was an acute manic episode many years ago and she was hospitalized. She denies that what she is experiencing now is similar to what she had experienced with kamille or depression. She states that she sometimes thinks things aren't quite right. For example, thinks that Dr. Lunsford may not be who he says he is because she thinks he has gained alot of weight in a short amount of time. Assured her that he is who he says he is. She is aware of who Dr. Pérez is and recognizes me from his office. Spoke for approx. 30 minutes. No acute delirium noted at this time. 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 No evidence of depression or kamille. Discussed importance of obtaining an MRI on her brain, which Dr. Lunsford has ordered. She agrees to this and agrees to stay in the hospital until she is discharged. Proceed with MRI of brain. No medication changes recommended. Recommend neurology consult. - Review of Systems Generalized/Overall Review: Reports: No Symptoms Reported Neurological: Reports: Headache - States that she has a frequent pressure or mild headache in back of head., Other - Intermittent confusion. - Vitals Vitals: Last Vital Signs Temp 36.6 C 11/10/16 07:25 Pulse 66 11/10/16 08:30 Resp 18 11/10/16 07:25 BP 150/69 11/10/16 08:30 Pulse Ox 93 11/10/16 07:25 - Exam Constitutional: Present: Alert, Oriented x3, Cooperative, No distress Appearance: Present: appropriate appearance, impaired insight, impaired recent memory Eye contact: Present: cooperative, good eye contact, normal speech Thoughts: Present: delusions - Mild intermittent delusions., normal mood /affect Assessment/Plan Plan Narrative: Proceed with MRI of brain. Recommend a neurology consult. - Problems/Diagnosis (1) Mental status change Problem: Acute Qualifiers: Altered mental status type: transient alteration of awareness Qualified Code(s): R40.4 - Transient alteration of awareness
[2016-11-10] MEDS ORDERED: HALOPERIDOL LACTATE 5 MG/ML VIAL IM STA (16:32)
[2016-11-10] MEDS ORDERED: HALOPERIDOL LACTATE 5 MG/ML VIAL IM PRN (16:48)
[2016-11-10] MEDS: ROSUVASTATIN CALCIUM 10 MG TABLET PO SCH (20:11)
[2016-11-11] MEDS: LEVOTHYROXINE SODIUM 50 MCG TABLET PO SCH (06:21)
[2016-11-11] MEDS: PANTOPRAZOLE SODIUM 40 MG TABLET.EC PO SCH (06:21)
[2016-11-11] MEDS: POTASSIUM CHLORIDE 10 MEQ TABLET.SA PO SCH ×2 (08:35→16:12)
[2016-11-11] MEDS: LORATADINE 10 MG TABLET PO SCH (08:36)
[2016-11-11] MEDS: ATENOLOL 50 MG TABLET PO SCH (08:36)
[2016-11-11] MEDS: buPROPion HCL 150 MG TAB.SR.24H PO SCH (08:36)
--- NOTE | 2016-11-11 08:38 | PN ---
Subjective - Date and Time Seen Date: 11/11/16 Time: 08:32 Subjective Narrative: Patient is rescheduled for MRI with anesthesia this afternoon. will get neurology consult. Objective - Review of Systems Generalized/Overall Review: Reports: No Symptoms Reported EENTM: Reports: No Symptoms Reported Respiratory: Reports: No Symptoms Reported Cardiac: Reports: No Symptoms Reported Abdominal: Reports: No Symptoms Reported Genitourinary Symptoms: Reports: No Symptoms Reported Musculoskeletal Complaints: Reports: No Symptoms Reported Neurological: Reports: No Symptoms Reported Skin: Reports: No Symptoms Reported Endocrine: Reports: No Symptoms Reported Misc: All systems neg except as marked - Unreliable due to her mental status - Vitals Vitals: Last Vital Signs Temp 36.8 C 11/10/16 23:13 Pulse 59 L 11/11/16 02:01 Resp 18 11/10/16 23:13 BP 107/43 11/10/16 23:13 Pulse Ox 95 11/10/16 23:13 - Exam Constitutional: Present: Alert - x 2, Cooperative ENT Exam: Present: hearing grossly normal Neck: Present: supple Breasts: Present: Exam deferred Respiratory: Present: decreased breath sounds, No rales, No wheezing Cardiovascular/Chest: Present: regular rate, rhythm, no JVD, no murmur Abdomen: Present: Normal bowel sounds, soft, nontender, nondistended Extremity: Present: no pedal edema, no calf tenderness Assessment/Plan - Problems/Diagnosis (1) Hydrocephalus Problem: Acute Narrative: for MRI this afternoon. (2) Mental status alteration Problem: Acute Qualifiers: Altered mental status type: disorientation Qualified Code(s): R41.0 - Disorientation, unspecified Narrative: Osiris Yuan saw the patient-[no medication changes . recommended MRI and neurology consult. (3) CAD (coronary artery disease) Problem: Chronic Qualifiers: Associated angina: without angina
[2016-11-11] MEDS: ROSUVASTATIN CALCIUM 10 MG TABLET PO SCH (20:32)
[2016-11-12] MEDS: LEVOTHYROXINE SODIUM 50 MCG TABLET PO SCH (07:08)
[2016-11-12] MEDS: PANTOPRAZOLE SODIUM 40 MG TABLET.EC PO SCH (07:08)
--- NOTE | 2016-11-12 08:51 | DS ---
(1) Hydrocephalus Problem: Suspected (2) Mental status change Problem: Acute Qualifiers: Altered mental status type: transient alteration of awareness Qualified Code(s): R40.4 - Transient alteration of awareness (3) CAD (coronary artery disease) Problem: Chronic Qualifiers: Associated angina: without angina Description of Stay: 71-year-old white female was admitted because of intermittent episodes of being confused and disoriented. Head CT showed some ventricular enlargement so a brain MRI was done showing also ventricular enlargement but no description consistent with normal pressure hydrocephalus. Psychiatry Consultation was obtained and patient will follow-up with the psychiatrist. On the day of discharge patient is alert and oriented. Does not have any urination problem. She has normal gait and she is alert and oriented 3 therefore in my opinion she does not have any any sign and symptom NORMAL pressure hydrocephalus. Patient refused to have a lumbar spinal tap. She was given instruction to follow up with Dr. Domínguez and not to drive.she will be referred to neurologist Procedures Performed: none Discharge Disposition: Home self care Disposition: Home self-care Condition: Good Discharge Activity: Activity as tolerated Discharge Diet: Low fat/chol Referrals: Ajit Lunsford MD [Primary Care Provider] - Additional Patient Instructions (free text): [facility]. Complete Home Medications List: Complete Home Medication List: Atenolol [Tenormin] 50 mg PO DAILY 10/30/13 Levothyroxine Sodium [Unithroid] 50 mcg PO DAILY 10/30/13 Bupropion HCl [Wellbutrin Xl] 150 mg PO DAILY 11/14/13 Atorvastatin Calcium [Lipitor] 40 mg PO DAILY 03/04/16 Potassium Chloride [Klor-Con 10] 10 meq PO BID 11/05/16 Esomeprazole Magnesium [Nexium] 40 mg PO DAILY 11/09/16
[2016-11-12] MEDS: LORATADINE 10 MG TABLET PO SCH (09:30)
[2016-11-12] MEDS: POTASSIUM CHLORIDE 10 MEQ TABLET.SA PO SCH (09:30)
[2016-11-12] MEDS: ATENOLOL 50 MG TABLET PO SCH (09:31)
[2016-11-12] MEDS: buPROPion HCL 150 MG TAB.SR.24H PO SCH (09:31)
[2016-11-12 10:54] VITALS: BP 129/66
== END 2016-11-12 12:30 | disposition home health service (06) ==
LOC: ER 02:11 → MS 04:48
PROVIDERS: ADMIT Nurse Practitioner Gerontology; ATTEND Internal Medicine
DX: R40.4 Transient alteration of awareness (principal); I25.10 Atherosclerotic heart disease of native coronary artery without angina pectoris; K21.9 Gastro-esophageal reflux disease without esophagitis; I10 Essential (primary) hypertension; F31.89 Other bipolar disorder; E03.9 Hypothyroidism, unspecified; F17.210 Nicotine dependence, cigarettes, uncomplicated
CPT/HCPCS: 36415; 70450; 70553; 80053; 80307; 81001; 82140; 83605; 84443; 85025; 85652; 93005; 96372; 99284; G0378

== ENCOUNTER 2017-04-24 17:42 | Emergency (ER) | payer MEDICARE ==
--- NOTE | 2017-04-24 18:10 | ERNOTE ---
Trauma/Assault HPI - General Stated Complaint: FALL/HIP PAIN Time Seen by Provider: 04/24/17 18:00 Source: patient Exam Limitations: no limitations - Immun/Allergies/Home Medications Immunizations: IMMUNIZATION HX Immunizations Up to Date Yes History of Influenza Vaccine Yes Hx Pneumococcal Vaccination No Allergies/Adverse Reactions: Allergies perfume Allergy (Mild, Verified 11/09/16 02:20) Headache soap Allergy (Mild, Verified 11/09/16 02:20) Headache Home Medications: HOME MEDICATIONS Atenolol [Tenormin] 50 mg PO DAILY 10/30/13 [Last Taken 10/30/13] Levothyroxine Sodium [Unithroid] 50 mcg PO DAILY 10/30/13 [Last Taken 10/30/13] Bupropion HCl [Wellbutrin Xl] 150 mg PO DAILY 11/14/13 [Last Taken Unknown] Atorvastatin Calcium [Lipitor] 40 mg PO DAILY 03/04/16 [Last Taken Unknown] Potassium Chloride [Klor-Con 10] 10 meq PO BID 11/05/16 [Last Taken Unknown] Esomeprazole Magnesium [Nexium] 40 mg PO DAILY 11/09/16 [Last Taken Unknown] Lamotrigine [Lamictal] 100 mg PO BID 04/24/17 [Last Taken Unknown] Naproxen [Naprosyn] 500 mg PO BID #60 tablet 04/24/17 [Last Taken Unknown] - History of Present Illness Narrative: Patient was walking two dogs and her foot got caught in a crack of the sidewalk and she tripped and went sideways striking her right hip. She was able walk-in , although she does have a limp and she is concerned to make sure that she doesn 't have some cervical fracture. She rates the pain as moderate in severity and she does have an antalgic gait. Location Occurred: Reports: street Pain Location: Reports: lower extremity - right hip Method of Injury: Reports: other - tripped Loss of Consciousness: Reports: no loss of consciousness Associated Symptoms - Trauma: Reports: denies symptoms Review of Systems - Review of Systems Constitutional: Present: See HPI EYE: Present: no symptoms reported ENT: Present: no symptoms reported Respiratory: Present: no symptoms reported Cardiology: Present: no symptoms reported Gastrointestinal/Abdominal: Present: no symptoms reported Genitourinary: Present: no symptoms reported Musculoskeletal: Present: joint pain - right hip Skin: Present: no symptoms reported Neurological: Present: no symptoms reported Endocrine: Present: no symptoms reported Hematologic/Lymphatic: Present: no symptoms reported Psych: Present: no symptoms reported - Patient's Past Medical History Patient History - Medical: Anxiety, Arthritis, Bipolar, Depression, GERD, Hypothyroidism Patient History - Cardiac/Respiratory: Hypertension, Myocardial Infarction Patient History - Cancer: No Hx of Cancer Patient History - Surgical Procedures: Appendectomy, Cholecystectomy, Cardiac stent, Hysterectomy Patient History - Other: None - Family History Mother Family History - Medical: Father Family History - Medical: - Social History Living Situations: alone Abuse History: No History of abuse Psych History: Hx of Anxiety, Hx of Depression, Hx of Bipolar Disorder Smoking Status: Current every day smoker Have you smoked in the past 12 months: Yes Do you dip or chew tobacco: No Alcohol Use: rarely Drug Use: none - Immunizations Immunizations Up to Date: Yes Hx Pneumococcal Vaccination: No History of Influenza Vaccine: Yes Physical Exam - Physical Exam General Appearance: Present: wd/wn, alert, moderate distress Head Exam: Present: normal inspection Eye Exam: Normal inspection: bilateral, PERRL: bilateral Ears, Nose, Throat: Present: normal ENT inspection, H, normal pharynx Neck: Present: normal inspection, nontender Respiratory: Present: no respiratory distress, normal breath sounds, no accessory muscle use, chest nontender, lungs clear Cardiovascular/Chest: Present: regular rate, rhythm, no murmur, normal peripheral pulses Gastrointestinal/Abdominal: Present: normal bowel sounds, nontender, nondistended, soft, no organomegaly Rectal Exam: Present: deferred Pelvic Exam: Present: deferred Back Exam: Present: normal inspection, normal range of motion Extremity Exam: Present: normal inspection, normal range of motion, no edema, bony tenderness - tenderness to the greater trochanter area of the right femur Neurological Exam: Present: alert, oriented, normal mood/affect Skin Exam: Present: normal color, warm/dry Lymphatic Exam: Present: no adenopathy ED Progress - Vital Signs Vital Signs: Vital Signs 04/24/17 17:52 Temperature 36.7 C Pulse Rate 76 Respiratory 16 Rate Blood Pressure 159/75 O2 Sat by Pulse 99 Oximetry - X-Ray X-Ray #1 X-Ray: hip Interpretation: Reviewed by me - Progress/Reassessment Chief Complaint: Fall Plan - Plan Plan: Patient appears to incurred a hip contusion and will be started on Naprosyn and she agrees to follow-up with her family physician this week. Departure Clinical Impression: Contusion, hip Qualifiers: Encounter type: initial encounter Laterality: right Qualified Code(s): S70.01XA - Contusion of right hip, initial encounter - Departure Disposition: Home self-care Condition: Good Instructions: Hip Pointer, [id number], Contusion, [id number] Referrals: Ajit Lunsford MD [Primary Care Provider] - Prescriptions: Naproxen [Naprosyn] 500 mg PO BID #60 tablet Critical Care Time - Critical Care Critical Time Spent:: No Total time (mins) Spent:: 0
[2017-04-24] MEDS ORDERED: NAPROXEN SODIUM 550 MG TABLET PO ONE ×2 (18:42→18:50)
[2017-04-24] MEDS ORDERED: NAPROXEN SODIUM 550 MG TABLET ONE (18:48)
[2017-04-24 18:55] VITALS: BP 133/75
== END 2017-04-24 18:54 | disposition home or self-care (01) ==
LOC: ER 17:42
DX: S70.01XA Contusion of right hip, initial encounter (principal); F17.200 Nicotine dependence, unspecified, uncomplicated; W01.0XXA Fall on same level from slipping, tripping and stumbling without subsequent striking against object, initial encounter; Y93.K1 Activity, walking an animal; Y92.414 Local residential or business street as the place of occurrence of the external cause

== ENCOUNTER 2018-08-05 14:08 | Observation (INO) ==
--- NOTE | 2018-08-05 14:32 | ERNOTE ---
Neuro HPI ER Record Date of Service: 08/05/18 Presenting Symptoms: impaired speech Time Seen by Provider: 08/05/18 14:10 Source: patient, family Exam Limitations: clinical condition Immunizations: IMMUNIZATION HX Immunizations Up to Date Yes History of Influenza Vaccine No Hx Pneumococcal Vaccination No Allergies/Adverse Reactions: Allergies Allergy/AdvReac Type Severity Reaction Status Date / Time perfume Allergy Mild migraines Verified 08/05/18 14:11 soap Allergy Mild migraines Verified 08/05/18 14:11 Home Medications: HOME MEDICATIONS Bupropion HCl [Wellbutrin Xl] 150 mg PO DAILY 11/14/13 [Last Taken 11/08/17] Lamotrigine [Lamictal] 100 mg PO BID 04/24/17 [Last Taken 11/08/17] potassium chloride ER 10 mEq tablet,extended release 10 meq PO BID #60 tab 02/09/18 [Last Taken Unknown] levothyroxine 50 mcg tablet 50 mcg PO DAILY #90 tab 05/12/18 [Last Taken Unknown] omeprazole 40 mg capsule,delayed release 40 mg PO DAILY #90 cap 06/15/18 [Last Taken Unknown] Atenolol [Tenormin] 50 mg PO BID 08/05/18 [Last Taken Unknown] Atorvastatin Calcium 40 mg PO DAILY 08/05/18 [Last Taken Unknown] - Pain Score Pain Score #1 Pain Score: 0 - History of Present Illness Narrative: The patient is a 73 year old female who presents with son via EMS for altered mental status which has been present for 1 week. There are associated symptoms of frequent falls. The patient denies pain. There are no alleviating factors. There are no aggravating factors. Previous treatments have included: none. The past medical history includes: AAA, Bipolar, HTN, hypothyroid and [place]. The social history is negative. The patient has had no known ill contacts. Patient's son reports that patient has fallen 3 times in the past week. Patient received CT head last week due to falls. EMS reports that patient was having difficulty with speech as well as incontinence upon arrival. No history of seizures reported by family. Son states that patient has had increased AMS. Review of Systems - Narrative Narrative: Patient poor historian due to clinical condition. Son unaware of recent symptoms. - Review of Systems Constitutional: Absent: recent illness - none reported by family, patient denies, fever EYE: Present: no symptoms reported - denied by patient ENT: Present: other - tongue pain Respiratory: Present: no symptoms reported Cardiology: Present: no symptoms reported Gastrointestinal/Abdominal: Present: no symptoms reported Genitourinary: Present: no symptoms reported Musculoskeletal: Present: no symptoms reported Skin: Present: no symptoms reported Neurological: Present: other Endocrine: Present: no symptoms reported Hematologic/Lymphatic: Present: no symptoms reported Psych: Present: no symptoms reported All Other Systems: All systems neg except as marked Medical History (Last Reviewed 08/05/18 @ 14:26 by MAGDALENA Barrios) Dyspnea on exertion (Acute) Jelena had 1 episode toward the end of a PT visit where she suddenly became SOB. It lasted 5-10 min. There were no other symptoms and specifically denies any CP. BP was up a little in PT but is normal today. Falling episodes (Chronic) Declining mobility (Chronic) Muscle weakness (Chronic) Flu-like symptoms (Acute) Fatigue (Chronic) Onset ~ 1mo. ago. Has progressively worsened. low back pain getting worse. Raynauds phenomenon (Chronic) Onset Date: Unknown Hypothyroidism (Chronic) Onset Date: Unknown Hypertension (Chronic) Onset Date: Unknown mild to moderate Hyperlipidemia due to dietary fat intake (Chronic) Onset Date: Unknown Bipolar disorder (Chronic) Onset Date: Unknown Breakdowns in 1988 & 2001 AAA (abdominal aortic aneurysm) Onset Date: 04/02/16 Atherosclerotic occlusive disease Onset Date: Unknown Postmenopausal atrophic vaginitis Onset Date: 07/16/15 Cataract Onset Date: Unknown Myocardial infarction Onset Date: 2002 Surgical History: Surgical History (Last Reviewed 08/05/18 @ 14:26 by MAGDALENA Barrios) History of aortic valve replacement with bioprosthetic valve Onset Date: 07/22/15 Hx of bladder repair surgery Onset Date: Unknown Hx of cholecystectomy Onset Date: 04/01/84 Hx of colonoscopy Onset Date: 11/09/17 - redundant colon. Recheck in 10 years Hx of colonoscopy with polypectomy Onset Date: 09/23/06 - hyperplastic polyp. Acute/chronic inflammation suggesting ulcerative colitis Hx of hysterectomy Onset Date: 06/01/87 ANDRE, LSO Hx of tonsillectomy Onset Date: Unknown Hx of tubal ligation Onset Date: 05/02/81 Family History: Family History (Last Reviewed 08/05/18 @ 14:26 by MAGDALENA Barrios) Father , at 62 CAD (coronary artery disease) Mother , in her 90s Dementia Brother CVA (cerebral vascular accident) Brother Dementia Social History: Preferred Language Kyrgyz Smoking Status Never smoker Abuse History No History of abuse Psych History Hx of Bipolar Disorder Alcohol Use none Drug Use none (Last Updated 07/06/18 @ 13:56 by Justo Olivo DO) No Social History Section defined Physical Exam - Physical Exam General Appearance: Present: alert, no apparent distress Head Exam: Present: normal inspection, no tenderness w palpation, contusions - healed abrasion to occiput Eye Exam: Normal inspection: bilateral, PERRL: bilateral, EOMI: bilateral Ears, Nose, Throat: Present: other - tender swollen area to right lateral tongue Neck: Present: normal inspection, nontender, full range of motion Respiratory: Present: no respiratory distress, normal breath sounds, no accessory muscle use, lungs clear Cardiovascular/Chest: Present: regular rate, rhythm, no murmur Gastrointestinal/Abdominal: Present: normal bowel sounds, nontender, nondistended, soft, no organomegaly Neurological Exam: Present: alert, no motor/sensory deficits, 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 Absent: motor weakness Skin Exam: Present: normal color, warm/dry Hamilton Coma Scale - Assess Eye Opening: Spontaneous Motor: Obeys Commands Verbal: Confused - Total Coma Scale Total: 14 Initial Stroke Assessment - Date/Time of assessment Stroke Scale Date: 08/05/18 Stroke Scale Time: 14:28 - NIH Stroke Scale Level of Consciousness: Alert LOC Questions (Year and Age): Answers neither correctly LOC Commands (open/close eyes/fist): Performs both correctly Lateral Gaze Paresis: None Visual Field Loss: No visual loss Facial Palsy: Normal movement Right Arm Motor (10 sec hold): No drift Left Arm Motor (10 sec hold): No drift Right Leg Motor (5 sec hold): No drift Left Leg Motor (5 sec hold): No drift Limb Ataxia (finger/nose heel/sullivan): Absent Sensory Loss (pinprick arms/legs/face): No sensory loss Language Aphasia (description/naming/reading): No aphasia; normal Dysarthria (speech clarity): Normal articulation Neglect Inattention (visual/tactile/auditory/spatial/person): No neglect Initial Stroke Scale Score:: 2 Progress - Date and Time Seen: Date and Time: 08/05/18 15:38 Discussed results with , due to alteration as well as unspecified if seizure occurred will admit observation for monitoring. 08/05/18 16:01 Patient reports she did not take routine medications todays. Will administer dose of scheduled atenolol due to hypertension. - Results and Orders Patient's Lab Results:: I have reviewed the patient's lab results. - Vital Signs Patient's Vital Signs:: I have reviewed the patient's vital signs. Vital Signs: Vital Signs 08/05/18 14:09 Temperature 36.6 C Pulse Rate 99 Respiratory Rate 16 Blood Pressure 176/96 H O2 Sat by Pulse Oximetry 95 - EKG EKG #1 EKG: NSR, nonspecific ST T wave changes EKG read: Reviewed by me - X-Ray X-Ray #1 X-Ray: chest Interpretation: Reviewed by me X-ray Comments: X-RAY REPORT ~[id number] RAD/Chest Single View *~ Exam Date: 08/05/2018 14:40 Ordering Physician: Awilda Pandya [employer] HISTORY: TIA Possible CVA Additional history from technologist: Altered mental status. TECHNIQUE: Single portable AP view of the chest was obtained at 1440 hours. COMPARISONS: 11/06/2016 FINDINGS: Chest Single View *: Normal inflation of lungs. No definite consolidation. Pulmonary vasculature is normal. No pneumothorax or pleural fluid collections apparent. Cardiac size within normal limits. Mild tortuosity of the thoracic aorta with overlying vascular calcifications, stable. Trachea is in normal position given patient positioning. Osseous structures are grossly intact. IMPRESSION: No acute cardiopulmonary findings. Electronically signed by Jorge Marquez M.D.. - Progress/Reassessment Chief Complaint: Altered Mental Status Progress:: Unchanged Departure Clinical Impression: Frequent falls Altered mental status, unspecified Qualifiers: Altered mental status type: unspecified Qualified Code(s): R41.82 - Altered mental status, unspecified - Departure Disposition: Still a patient Condition: Fair
[2018-08-05 14:51] LABS: Albumin * 3.4 gm/dl (3.4-5.0); Anion Gap 16.3 mmol/L (6.8-13.8); BUN/Creatinine Ratio 20.5 (9.0-21.6); Bilirubin, Total 0.7 mg/dL (0.0-1.1); Ca. Corrected For Albumin 9.6 mg/dL (8.4-10.2); Calcium * 9.4 mg/dL (7.9-10.9); Carbon Dioxide 25.6 mmol/L (24-32.6); Potassium 3.9 mmol/L (3.4-4.6); Total Protein 7.9 gm/dL (6.2-8.2)
[2018-08-05 15:07] LABS: INR 1.26 INR (0.92-1.08); Partial Thrombolplastin Time 18.9 Seconds (24-32); Prothrombin Time (Patient) 12.4 Seconds (9.1-10.7)
[2018-08-05 15:09] LABS: Urine Appearance Clear (CLEAR); Urine Bacteria None Seen; Urine Bilirubin Negative (NEGATIVE); Urine Blood 5 /ul (NEGATIVE); Urine Color Yellow; Urine Ketone 5 mg/dL (NEGATIVE); Urine Nitrite Negative (NEGATIVE); Urine Protein 100 mg/dL (NEGATIVE); Urine RBC 0-5 /hpf (0-5); Urine Specific Gravity 1.025 SP.GR. (1.005-1.010); Urine Urobilinogen Normal (NORMAL); Urine WBC None Seen /hpf (0-5); Urine pH 6.5 pH (5.0-7.0)
[2018-08-05 15:25] LABS: CRP 3.2 mg/dL (0.0-0.9); Troponin I 0.029 ng/mL (0.00-0.10)
[2018-08-05 15:58] LABS: Hematocrit 42.5 % (37.0-47.0); Hemoglobin 14.1 gm/dL (12.5-16.0); Mean Cell Volume 93.6 fl (78-100); Mean Corpuscular Hemoglobin 31.1 pg (27-31); Mean Corpuscular Hgb Conc 33.2 g/dl (32-36); Mean Platelet Volume 11.1 fl (8-12.5); Neutrophil # 9.1 K/mm3 (1.3-6.0); Neutrophil % 80.5 % (42-75.0); Platelet Count 241 K/mm3 (150-450); Red Blood Count 4.54 M/mm3 (4.2-5.4); Red Cell Distribution Width 12.3 % (11.5-14.0); White Blood Count 11.3 K/mm3 (4.0-10.5)
[2018-08-05] MEDS ORDERED: ATENOLOL 50 MG TABLET PO ONE (16:01)
[2018-08-05] MEDS ORDERED: ATENOLOL 50 MG TABLET ONE (16:02)
--- NOTE | 2018-08-05 22:17 | HP ---
Chief Complaint - Chief Complaint Date of Service: 08/05/18 Time of Service: 20:30 Chief Complaint: Multiple falls, weakness, altered mental status, possible seizure(s) History of Present Illness: Jelena Singer is a 73 yo wh. fe who had onset of weakness, 3 falls unwitnessed, mental confusion, and had bit her tongue either from one of her falls or possibly a seizure for which she has no history.Jelena has a flat aFFECT BUT IT HER USUAL AFFECT. She is c/o upper back pain where she fell today. This is all new for her. Etiology to be determined. Medical History (Last Reviewed 08/05/18 @ 16:47 by Lisa Santana RN) Dyspnea on exertion (Acute) Jelena had 1 episode toward the end of a PT visit where she suddenly became SOB. It lasted 5-10 min. There were no other symptoms and specifically denies any CP. BP was up a little in PT but is normal today. Falling episodes (Chronic) Declining mobility (Chronic) Muscle weakness (Chronic) Flu-like symptoms (Acute) Fatigue (Chronic) Onset ~ 1mo. ago. Has progressively worsened. low back pain getting worse. Raynauds phenomenon (Chronic) Onset Date: Unknown Hypothyroidism (Chronic) Onset Date: Unknown Hypertension (Chronic) Onset Date: Unknown mild to moderate Hyperlipidemia due to dietary fat intake (Chronic) Onset Date: Unknown Bipolar disorder (Chronic) Onset Date: Unknown Breakdowns in 1988 & 2001 AAA (abdominal aortic aneurysm) Onset Date: 04/02/16 Atherosclerotic occlusive disease Onset Date: Unknown Postmenopausal atrophic vaginitis Onset Date: 07/16/15 Cataract Onset Date: Unknown Myocardial infarction Onset Date: 2002 Surgical History: Surgical History (Last Reviewed 08/05/18 @ 16:47 by Lisa Santana RN) History of aortic valve replacement with bioprosthetic valve Onset Date: 01/27 Hx of bladder repair surgery Onset Date: Unknown Hx of cholecystectomy Onset Date: 04/01/84 Hx of colonoscopy Onset Date: 11/09/17 - redundant colon. Recheck in 10 years Hx of colonoscopy with polypectomy Onset Date: 09/23/06 - hyperplastic polyp. Acute/chronic inflammation suggesting ulcerative colitis Hx of hysterectomy Onset Date: 06/01/87 ANDRE, [facility] Hx of tonsillectomy Onset Date: Unknown Hx of tubal ligation Onset Date: 05/02/81 Family History: Family History (Last Reviewed 08/05/18 @ 16:47 by Lisa Santana RN) Father , at 62 CAD (coronary artery disease) Mother , in her 90s Dementia Brother CVA (cerebral vascular accident) Brother Dementia Social History: Patient Lives/Resources Home Utilized Preferred Language [place] Do you have any restoration or No cultural preference? Smoking Status Never smoker Have you smoked in the past 12 No months Abuse History No History of abuse Psych History Hx of Bipolar Disorder Alcohol Use none Drug Use none (Last Updated 07/06/18 @ 13:56 by Justo Olivo DO) No Social History Section defined Review Of Systems (GEN) - Review of Systems Generalized/Overall Review: Present: Weakness, Malaise, Fatigue EENTM: Present: Other - sore tongue from a biting. Respiratory: Present: No Symptoms Reported Cardiac: Present: No Symptoms Reported Abdominal: Present: No Symptoms Reported Genitourinary: Present: No Symptoms Reported Musculoskeletal: Present: Joint Pain - L shoulder pain, Back Pain Neurological: Present: Depressed, Seizure - possible Skin: Present: No Symptoms Reported Endocrine: Present: No Symptoms Reported Additional Comments: history of bipolar depression Immunizations: IMMUNIZATION HX Immunizations Up to Date Yes History of Influenza Vaccine No Hx Pneumococcal Vaccination No Allergies/Adverse Reactions: Allergies Allergy/AdvReac Type Severity Reaction Status Date / Time perfume Allergy Mild migraines Verified 08/05/18 14:11 soap Allergy Mild migraines Verified 08/05/18 14:11 Home Medications: HOME MEDICATIONS Bupropion HCl [Wellbutrin Xl] 150 mg PO DAILY 11/14/13 [Last Taken 11/08/17] Lamotrigine [Lamictal] 100 mg PO BID 04/24/17 [Last Taken 11/08/17] potassium chloride ER 10 mEq tablet,extended release 10 meq PO BID #60 tab 02/09/18 [Last Taken Unknown] levothyroxine 50 mcg tablet 50 mcg PO DAILY #90 tab 05/12/18 [Last Taken Unknown] omeprazole 40 mg capsule,delayed release 40 mg PO DAILY #90 cap 06/15/18 [Last Taken Unknown] Atenolol [Tenormin] 50 mg PO BID 08/05/18 [Last Taken Unknown] Atorvastatin Calcium 40 mg PO DAILY 08/05/18 [Last Taken Unknown] Exam - Exam Vital Signs: Vital Signs - Last Taken Temp 37.4 C 08/05/18 19:24 Pulse 82 08/05/18 19:24 Resp 16 08/05/18 19:24 BP 171/78 H 08/05/18 19:24 Pulse Ox 96 08/05/18 19:24 Constitutional: Present: Alert, Oriented x3, Cooperative, Well developed, Well nourished, Mild distress, Elderly ENT Exam: Present: normal ENT inspection, other - tongue bruise Eye Exam: bilateral eye: normal inspection, PERRL, EOMI Neck: Present: limited range of motion, stiff neck Back Exam: Present: normal inspection, no vertebral tenderness, other - paraspinous muscles are sore and tight Breasts: Present: Exam deferred Respiratory: Present: chest non-tender Cardiovascular/Chest: Present: normal peripheral pulses, regular rate, rhythm, no chest tenderness, no edema, no gallop, no JVD, no murmur, no rub Peripheral Pulses: carotid (R): 2+, carotid (L): 2+, radial (R): 2+, radial (L): 2+ Abdomen: Present: Normal bowel sounds, soft, nontender, nondistended, no rebound tenderness, no hepatospenomegaly, no masses /Rectal: Present: Exam deferred Extremity: Present: normal range of motion, normal inspection, no pedal edema, no calf tenderness, normal capillary refill, pelvis stable Skin Exam: Present: normal color, warm/dry, no cyanosis Lymphatic: Present: no adenopathy 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, no motor/sensory deficits, alert, oriented x 3, abnormal gait, motor weakness, depressed affect Appearance: Present: appropriate appearance, appropriate insight, neat, no memory impairment Eye contact: Present: cooperative, good eye contact, normal speech Thoughts: Present: normal thought pattern, no apparent hallucination Diagnostic Studies: Abnormal Lab Results 08/05/18 08/05/18 08/05/18 Range/Units 14:17 14:33 14:33 WBC 11.3 H (4.0-10.5) K/mm3 MCH 31.1 H (27-31) pg Neutrophils % 80.5 H (42-75.0) % Lymphocytes % 11.6 L (20-51) % Neutrophils # 9.1 H (1.3-6.0) K/mm3 Lymphocytes # 1.31 L (1.5-3.5) k/mm3 ESR 85 H (0-15) mm/hr PT (9.1-10.7) Seconds INR (Anticoag Therapy) (0.92-1.08) INR PTT ([place]) (24-32) Seconds Anion Gap 16.3 H (6.8-13.8) mmol/L Alkaline Phosphatase 191 H (50-170) U/L C-Reactive Prot, Quant (0.0-0.9) mg/dL Urine Protein (NEGATIVE) mg/dL Urine Blood (NEGATIVE) /ul Prot Sulfosalicylic Acd (0) mg/dL 08/05/18 08/05/18 08/05/18 Range/Units 14:45 14:48 15:07 WBC (4.0-10.5) K/mm3 MCH (27-31) pg Neutrophils % (42-75.0) % Lymphocytes % (20-51) % Neutrophils # (1.3-6.0) K/mm3 Lymphocytes # (1.5-3.5) k/mm3 ESR (0-15) mm/hr PT 12.4 H (9.1-10.7) Seconds INR (Anticoag Therapy) 1.26 H (0.92-1.08) INR PTT ([place]) 18.9 L (24-32) Seconds Anion Gap (6.8-13.8) mmol/L Alkaline Phosphatase (50-170) U/L C-Reactive Prot, Quant 3.2 H (0.0-0.9) mg/dL Urine Protein 100 H (NEGATIVE) mg/dL Urine Blood 5 H (NEGATIVE) /ul Prot Sulfosalicylic Acd 3+ H (0) mg/dL Laboratory Results WBC 11.3 K/mm3 (4.0-10.5) H 08/05/18 14:33 RBC 4.54 M/mm3 (4.2-5.4) 08/05/18 14:33 Hgb 14.1 gm/dL (12.5-16.0) 08/05/18 14:33 Hct 42.5 % (37.0-47.0) 08/05/18 14:33 MCV 93.6 fl (78-100) 08/05/18 14:33 MCH 31.1 pg (27-31) H 08/05/18 14:33 MCHC 33.2 g/dl (32-36) 08/05/18 14:33 RDW 12.3 % (11.5-14.0) 08/05/18 14:33 Plt Count 241 K/mm3 (150-450) 08/05/18 14:33 MPV 11.1 fl (8-12.5) 08/05/18 14:33 Immature Gran % (Auto) 0.20 % (0.001-0.429) 08/05/18 14:33 Immature Gran # (Auto) 0.02 K/mm3 (0.000-0.0310) 08/05/18 14:33 Neutrophils % 80.5 % (42-75.0) H 08/05/18 14:33 Lymphocytes % 11.6 % (20-51) L 08/05/18 14:33 Monocytes % 7.0 % (0.0-9) 08/05/18 14:33 Eosinophils % 0.3 % (0.0-3.0) 08/05/18 14:33 Basophils % 0.4 % (0.0-1.0) 08/05/18 14:33 Nucleated RBC % 0.0 k/mm3 (0-1) 08/05/18 14:33 Neutrophils # 9.1 K/mm3 (1.3-6.0) H 08/05/18 14:33 Lymphocytes # 1.31 k/mm3 (1.5-3.5) L 08/05/18 14:33 Monocytes # 0.8 k/mm3 (0.0-1.0) 08/05/18 14:33 Eosinophils # 0.0 k/mm3 (0.0-0.7) 08/05/18 14:33 Absolute Basophils 0.1 k/mm3 (0.0-0.1) 08/05/18 14:33 ESR 85 mm/hr (0-15) H 08/05/18 14:17 PT 12.4 Seconds (9.1-10.7) H 08/05/18 14:45 INR (Anticoag Therapy) 1.26 INR (0.92-1.08) H 08/05/18 14:45 PTT ([place]) 18.9 Seconds (24-32) L 08/05/18 14:45 Sodium 139 mmol/L (132-142) 08/05/18 14:33 Plasma Sodium 139 mmol/L (130-142) 08/05/18 14:33 Potassium 3.9 mmol/L (3.4-4.6) 08/05/18 14:33 Chloride 101 mmol/L (97-106) 08/05/18 14:33 Carbon Dioxide 25.6 mmol/L (24-32.6) 08/05/18 14:33 Anion Gap 16.3 mmol/L (6.8-13.8) H 08/05/18 14:33 BUN 17 mg/dL (3-23) 08/05/18 14:33 Creatinine 0.83 mg/dL (0.4-1.4) 08/05/18 14:33 Est GFR (Non-Af Amer) 72 mL/min (60-130) 08/05/18 14:33 BUN/Creatinine Ratio 20.5 (9.0-21.6) 08/05/18 14:33 Random Glucose 103 mg/dL (70-110) 08/05/18 14:33 Calcium 9.4 mg/dL (7.9-10.9) 08/05/18 14:33 Calcium Adj for Albumin 9.6 mg/dL (8.4-10.2) 08/05/18 14:33 Total Bilirubin 0.7 mg/dL (0.0-1.1) 08/05/18 14:33 AST 32 U/L (0-48) 08/05/18 14:33 ALT 25 U/L (19-67) 08/05/18 14:33 Alkaline Phosphatase 191 U/L (50-170) H 08/05/18 14:33 Troponin I 0.029 ng/mL (0.00-0.10) 08/05/18 14:48 C-Reactive Prot, Quant 3.2 mg/dL (0.0-0.9) H 08/05/18 14:48 Total Protein 7.9 gm/dL (6.2-8.2) 08/05/18 14:33 Albumin 3.4 gm/dl (3.4-5.0) 08/05/18 14:33 Urine Color Yellow 08/05/18 15:07 Urine Appearance Clear (CLEAR) 08/05/18 15:07 Urine pH 6.5 pH (5.0-7.0) 08/05/18 15:07 Ur Specific [place] 1.025 SP.GR. (1.005-1.010) 08/05/18 15:07 Urine Protein 100 mg/dL (NEGATIVE) H 08/05/18 15:07 Urine Glucose (UA) Negative mg/dL (NEGATIVE) 08/05/18 15:07 Urine Ketones 5 mg/dL (NEGATIVE) 08/05/18 15:07 Urine Blood 5 /ul (NEGATIVE) H 08/05/18 15:07 Urine Nitrate Negative (NEGATIVE) 08/05/18 15:07 Urine Bilirubin Negative mg/dl (NEGATIVE) 08/05/18 15:07 Prot Sulfosalicylic Acd 3+ mg/dL (0) H 08/05/18 15:07 Urine Urobilinogen Normal EU/dl (NORMAL) 08/05/18 15:07 Ur Leukocyte Esterase Negative /ul (NEGATIVE) 08/05/18 15:07 Urine RBC 0-5 /hpf (0-5) 08/05/18 15:07 Urine WBC None seen /hpf (0-5) 08/05/18 15:07 Ur Epithelial Cells None seen /hpf (0-5) 08/05/18 15:07 Urine Bacteria None seen (NONE) 08/05/18 15:07 Urine Culture Comments No culture indicated 08/05/18 15:07 Assessment/Plan - Narrative Narrative: 1. continuous cardiac monitoring 2. repeat lab and ECG in the morning 3. PT/OT eval tomorrow morning 4. Seizure precautions 5. Continue with current meds 6. Dr. Baker to assume management - Procedures Results: sed rate is high @ 86 and alkaline phosphatase is elevated -reason unknown. CRP is also elevated. Followup studies ordered. - Assessment/Plan (1) Mental status alteration Problem: Acute Qualifiers: Altered mental status type: disorientation (2) Weakness Problem: Acute (3) Frequent falls Problem: Acute (4) Declining mobility Problem: Chronic (5) Muscle weakness Problem: Chronic (6) Fatigue Problem: Chronic Qualifiers: Fatigue type: unspecified
[2018-08-05] MEDS: lamoTRIgine 100 MG TABLET PO SCH (22:21)
[2018-08-06 06:26] LABS: Hematocrit 39.2 % (37.0-47.0); Hemoglobin 13.1 gm/dL (12.5-16.0); Mean Cell Volume 92.9 fl (78-100); Mean Corpuscular Hgb Conc 33.4 g/dl (32-36); Mean Platelet Volume 11.4 fl (8-12.5); Neutrophil % 80.8 % (42-75.0); Platelet Count 258 K/mm3 (150-450); Red Blood Count 4.22 M/mm3 (4.2-5.4); Red Cell Distribution Width 12.2 % (11.5-14.0); White Blood Count 11.1 K/mm3 (4.0-10.5)
[2018-08-06 06:48] LABS: Anion Gap 15.9 mmol/L (6.8-13.8); BUN/Creatinine Ratio 17.3 (9.0-21.6); Ca. Corrected For Albumin 9.5 mg/dL (8.4-10.2); Carbon Dioxide 26.3 mmol/L (24-32.6); Potassium 3.2 mmol/L (3.4-4.6); Total Protein 7.4 gm/dL (6.2-8.2)
[2018-08-06] MEDS: LEVOTHYROXINE SODIUM 50 MCG TABLET PO SCH (06:55)
[2018-08-06] MEDS: PANTOPRAZOLE SODIUM 40 MG TABLET.EC PO SCH (06:56)
[2018-08-06] MEDS: buPROPion HCL 150 MG TAB.SR.24H PO SCH (09:53)
[2018-08-06] MEDS: ATENOLOL 50 MG TABLET PO SCH ×2 (09:54→21:23)
[2018-08-06] MEDS: POTASSIUM CHLORIDE 10 MEQ TABLET.SA PO SCH ×2 (09:54→17:42)
[2018-08-06] MEDS: lamoTRIgine 100 MG TABLET PO SCH ×2 (09:54→21:23)
[2018-08-06] MEDS: ACETAMINOPHEN 325 MG TABLET PO PRN ×2 (10:16→16:23)
[2018-08-06] MEDS: LISINOPRIL 5 MG TABLET PO SCH (11:52)
[2018-08-06] MEDS ORDERED: POTASSIUM CHLORIDE 20 MEQ TABLET.SA PO ONE (15:53)
--- NOTE | 2018-08-06 16:07 | PN ---
Subjective - Date and Time Seen Date: 08/06/18 Time: 15:53 Objective - Review of Systems Generalized/Overall Review: Reports: Weakness, Fatigue Respiratory: Denies: Shortness of Breath Abdominal: Denies: Abdominal Pain Misc: All systems neg except as marked - Vitals Vitals: Last Vital Signs Temp 37.2 C 08/06/18 14:55 Pulse 74 08/06/18 14:55 Resp 16 08/06/18 14:55 BP 135/69 08/06/18 14:55 Pulse Ox 95 08/06/18 14:55 - Abnormal Lab Findings Abnormal Lab Findings: Abnormal Lab Results 08/05/18 08/05/18 08/06/18 Range/Units 14:17 14:33 06:10 WBC 11.3 H 11.1 H (4.0-10.5) K/mm3 MCH 31.1 H (27-31) pg Neutrophils % 80.5 H 80.8 H (42-75.0) % Lymphocytes % 11.6 L 9.2 L (20-51) % Neutrophils # 9.1 H 9.0 H (1.3-6.0) K/mm3 Lymphocytes # 1.31 L 1.02 L (1.5-3.5) k/mm3 ESR 85 H (0-15) mm/hr Potassium (3.4-4.6) mmol/L Anion Gap (6.8-13.8) mmol/L Alkaline Phosphatase (50-170) U/L Albumin (3.4-5.0) gm/dl 08/06/18 Range/Units 06:10 WBC (4.0-10.5) K/mm3 MCH (27-31) pg Neutrophils % (42-75.0) % Lymphocytes % (20-51) % Neutrophils # (1.3-6.0) K/mm3 Lymphocytes # (1.5-3.5) k/mm3 ESR (0-15) mm/hr Potassium 3.2 L (3.4-4.6) mmol/L Anion Gap 15.9 H (6.8-13.8) mmol/L Alkaline Phosphatase 177 H (50-170) U/L Albumin 3.0 L (3.4-5.0) gm/dl - Exam Constitutional: Present: Well developed, Well nourished, No distress ENT Exam: Present: hearing grossly normal Neck: Present: non-tender, supple. Absent: lymphadenopathy (R), lymphadenopathy (L) Respiratory: Present: lungs clear. Absent: accessory muscle use, crackles, rhonchi, wheezing Cardiovascular/Chest: Present: regular rate, rhythm. Absent: no murmur Abdomen: Present: Normal bowel sounds, soft, nontender Extremity: Present: no pedal edema Skin Exam: Present: normal color, warm/dry Neurologic: Present: abnormal gait. Absent: normal mood/affect Appearance: Present: impaired insight, impaired recent memory, impaired remote memory. Absent: appropriate insight Eye contact: Present: cooperative Thoughts: Absent: normal mood /affect Assessment/Plan Plan Narrative: 73-year-old female with past medical history of memory impairment, NM, hypertension, hypothyroidism presents with complaint of multiple falls, weakness, altered mental status. She was found to have a mild leukocytosis of 11, elevated sed rate, and CT head showing stable ventriculomegaly which can be seen with normal pressure hydrocephalus no acute intracranial hemorrhage or mass-effect. She was admitted for further evaluation and monitoring. Physical therapy has seen her and has determined that she is not safe to go home because she lives by herself and is requiring 1 person assist with ambulation son aware of her condition and is open to sending her to a facility on discharge. - Problems/Diagnosis (1) Frequent falls Problem: Acute (2) Mental status change Problem: Acute Qualifiers: Altered mental status type: unspecified Qualified Code(s): R41.82 - Altered mental status, unspecified (3) Declining mobility Problem: Chronic Narrative: She has been evaluated by physical therapy and they determined that she is not safe to go home and may be a good candidate for a facility (4) Hypothyroidism Problem: Chronic Narrative: Stable no changes to medications continue home medications. (5) Hypertension Problem: Chronic Qualifiers: Hypertension type: essential hypertension Qualified Code(s): I10 - Essential (primary) hypertension Narrative: Blood pressure elevated I will add lisinopril 5 mg daily. Blood pressure has responded well to the addition of the FLORECITA inhibitor.
[2018-08-07] MEDS: ACETAMINOPHEN 325 MG TABLET PO PRN ×3 (03:43→21:27)
[2018-08-07 06:50] LABS: Albumin * 2.6 gm/dl (3.4-5.0); Anion Gap 15.4 mmol/L (6.8-13.8); Ca. Corrected For Albumin 9.7 mg/dL (8.4-10.2); Calcium * 8.9 mg/dL (7.9-10.9); Carbon Dioxide 24.9 mmol/L (24-32.6); Potassium 3.3 mmol/L (3.4-4.6)
[2018-08-07] MEDS: LEVOTHYROXINE SODIUM 50 MCG TABLET PO SCH (06:54)
[2018-08-07] MEDS: PANTOPRAZOLE SODIUM 40 MG TABLET.EC PO SCH (06:54)
[2018-08-07] MEDS: ATENOLOL 50 MG TABLET PO SCH ×2 (08:35→21:27)
[2018-08-07] MEDS: POTASSIUM CHLORIDE 10 MEQ TABLET.SA PO SCH ×2 (08:35→17:06)
[2018-08-07] MEDS: LISINOPRIL 5 MG TABLET PO SCH (08:35)
[2018-08-07] MEDS: buPROPion HCL 150 MG TAB.SR.24H PO SCH (08:35)
[2018-08-07] MEDS: lamoTRIgine 100 MG TABLET PO SCH ×2 (08:36→21:27)
[2018-08-07] MEDS ORDERED: POTASSIUM BICARBONATE/CIT AC 25 MEQ TABLET.EFF PO ONE ×2 (09:05→09:07)
[2018-08-07] MEDS ORDERED: SENNOSIDES 8.6 MG TABLET PO PRN (11:18)
--- NOTE | 2018-08-07 11:29 | PN ---
Subjective - Date and Time Seen Date: 08/07/18 Time: 11:21 Subjective Narrative: She denies any new complaints. Objective - Review of Systems Generalized/Overall Review: Reports: Weakness Respiratory: Denies: Shortness of Breath Abdominal: Denies: Abdominal Pain Misc: All systems neg except as marked - Vitals Vitals: Last Vital Signs Temp 36.8 C 08/07/18 10:00 Pulse 73 08/07/18 10:00 Resp 18 08/07/18 10:00 BP 155/70 H 08/07/18 10:00 Pulse Ox 94 08/07/18 10:00 - Abnormal Lab Findings Abnormal Lab Findings: Abnormal Lab Results 08/07/18 Range/Units 05:50 Potassium 3.3 L (3.4-4.6) mmol/L Anion Gap 15.4 H (6.8-13.8) mmol/L BUN/Creatinine Ratio 23.0 H (9.0-21.6) Albumin 2.6 L (3.4-5.0) gm/dl - Exam Constitutional: Present: Alert, Cooperative, Well developed, Well nourished, No distress ENT Exam: Present: hearing grossly normal Neck: Present: non-tender, supple. Absent: lymphadenopathy (R), lymphadenopathy (L) Respiratory: Present: lungs clear, normal breath sounds, no accessory muscle use. Absent: crackles, rhonchi, wheezing Cardiovascular/Chest: Present: normal peripheral pulses, regular rate, rhythm, no edema, no murmur Abdomen: Present: Normal bowel sounds, soft, nontender Extremity: Present: no pedal edema Skin Exam: Present: normal color, warm/dry Neurologic: Present: alert Appearance: Present: appropriate appearance, impaired insight Eye contact: Present: cooperative, avoids eye contact Assessment/Plan Plan Narrative: 73-year-old female with past medical history memory impairment, [place], hypertension, hypothyroidism presents with complaint of multiple falls, weakness, altered mental status. She was found to have CT head showing a stable ventriculomegaly which according to the son she has had for years. No intervention had been done in regards to this finding. Blood work is unremarkable. - Problems/Diagnosis (1) Frequent falls Problem: Acute Narrative: May be secondary to medication mismanagement in the setting of her worsening me audrey. She may have an element of dementia, lives alone and nobody helps her with her medications. Her son is going to have her evaluated by the [facility] to see if she qualifies for assisted living. She does not qualify he would like to place her in a usp. She will need supervision on discharge and is not a good candidate to go home. (2) Mental status change Problem: Acute Qualifiers: Altered mental status type: unspecified Qualified Code(s): R41.82 - Altered mental status, unspecified Narrative: Somewhat improved today. Son states her memory has been an issue for some time and she may have an element of dementia though it has not been diagnosed. (3) Declining mobility Problem: Chronic Narrative: Physical therapy has evaluated the patient yesterday and determined that she has decreased strength and ambulating and transferring. Son would like to send her to an assisted living or a usp on discharge because she lives alone. (4) Hypothyroidism Problem: Chronic Narrative: Stable no changes to medications. (5) Hypertension Problem: Chronic Qualifiers: Hypertension type: essential hypertension Qualified Code(s): I10 - Essential (primary) hypertension Narrative: Stable no changes to medications.
[2018-08-07] MEDS: DOCUSATE SODIUM 100 MG CAPSULE PO SCH ×2 (12:40→21:27)
[2018-08-07] MEDS: NORMAL SALINE 1,000 ML IV PRN (17:08)
[2018-08-08 06:20] LABS: Hematocrit 38.7 % (37.0-47.0); Hemoglobin 12.7 gm/dL (12.5-16.0); Mean Cell Volume 93.9 fl (78-100); Mean Corpuscular Hemoglobin 30.8 pg (27-31); Mean Corpuscular Hgb Conc 32.8 g/dl (32-36); Mean Platelet Volume 11.5 fl (8-12.5); Neutrophil # 9.1 K/mm3 (1.3-6.0); Neutrophil % 79.8 % (42-75.0); Platelet Count 276 K/mm3 (150-450); Red Blood Count 4.12 M/mm3 (4.2-5.4); Red Cell Distribution Width 12.1 % (11.5-14.0); White Blood Count 11.5 K/mm3 (4.0-10.5)
[2018-08-08 06:34] LABS: Albumin * 2.6 gm/dl (3.4-5.0); Anion Gap 16.7 mmol/L (6.8-13.8); BUN/Creatinine Ratio 23.5 (9.0-21.6); Bilirubin, Total 0.6 mg/dL (0.0-1.1); Ca. Corrected For Albumin 9.4 mg/dL (8.4-10.2); Calcium * 8.6 mg/dL (7.9-10.9); Carbon Dioxide 23.9 mmol/L (24-32.6); Potassium 3.6 mmol/L (3.4-4.6); Total Protein 7.2 gm/dL (6.2-8.2)
[2018-08-08] MEDS: ACETAMINOPHEN 325 MG TABLET PO PRN ×2 (06:35→16:59)
[2018-08-08] MEDS: PANTOPRAZOLE SODIUM 40 MG TABLET.EC PO SCH (06:35)
[2018-08-08] MEDS: LEVOTHYROXINE SODIUM 50 MCG TABLET PO SCH (06:35)
[2018-08-08] MEDS: NORMAL SALINE 1,000 ML IV PRN ×2 (06:49→21:12)
[2018-08-08] MEDS ORDERED: BISACODYL 10 MG SUPP.RECT RC ONE (08:09)
[2018-08-08] MEDS ORDERED: BISACODYL 5 MG TABLET.DR PO ONE (08:09)
[2018-08-08] MEDS: DOCUSATE SODIUM 100 MG CAPSULE PO SCH ×2 (08:27→20:36)
[2018-08-08] MEDS: LISINOPRIL 5 MG TABLET PO SCH (08:27)
[2018-08-08] MEDS: buPROPion HCL 150 MG TAB.SR.24H PO SCH (08:27)
[2018-08-08] MEDS: ATENOLOL 50 MG TABLET PO SCH ×2 (08:27→20:37)
[2018-08-08] MEDS: POTASSIUM CHLORIDE 10 MEQ TABLET.SA PO SCH ×2 (08:27→17:00)
[2018-08-08] MEDS: lamoTRIgine 100 MG TABLET PO SCH ×2 (08:27→20:37)
[2018-08-08] MEDS: amLODIPine BESYLATE 10 MG TABLET PO SCH (08:28)
[2018-08-08] MEDS ORDERED: ENALAPRILAT DIHYDRATE 2.5 MG/2 ML VIAL IV ONE (14:34)
[2018-08-09] MEDS: PANTOPRAZOLE SODIUM 40 MG TABLET.EC PO SCH (07:25)
[2018-08-09] MEDS: LEVOTHYROXINE SODIUM 50 MCG TABLET PO SCH (07:25)
[2018-08-09] MEDS: ACETAMINOPHEN 325 MG TABLET PO PRN (07:25)
[2018-08-09] MEDS: lamoTRIgine 100 MG TABLET PO SCH (10:15)
[2018-08-09] MEDS: amLODIPine BESYLATE 10 MG TABLET PO SCH (10:15)
[2018-08-09] MEDS: ATENOLOL 50 MG TABLET PO SCH (10:15)
[2018-08-09] MEDS: LISINOPRIL 5 MG TABLET PO SCH (10:15)
[2018-08-09] MEDS: buPROPion HCL 150 MG TAB.SR.24H PO SCH (10:15)
[2018-08-09] MEDS: DOCUSATE SODIUM 100 MG CAPSULE PO SCH (10:16)
[2018-08-09] MEDS: POTASSIUM CHLORIDE 10 MEQ TABLET.SA PO SCH (10:16)
[2018-08-09] MEDS: NORMAL SALINE 1,000 ML IV PRN (11:07)
--- NOTE | 2018-08-09 14:09 | DS ---
(1) Mental status alteration Problem: Resolved Qualifiers: Altered mental status type: transient alteration of awareness Qualified Code(s): R40.4 - Transient alteration of awareness (2) Weakness Problem: Acute (3) Frequent falls Problem: Acute (4) Declining mobility Problem: Chronic (5) Muscle weakness Problem: Chronic (6) Fatigue Problem: Chronic Qualifiers: Fatigue type: unspecified Qualified Code(s): R53.83 - Other fatigue Description of Stay: Jelena Singer is a 73-year-old female who was admitted with progressive weakness, loss of mobility, decrease in ADLs, and mental confusion. She has a long-standing history of psychiatric illness that has been well managed with medication until now. She was rehydrated and has been monitored through the weekend and yesterday. She is much more alert and conversant. She continues to be weak but is walking better. She will be going to [facility] for limb strengthening, balance training, and improvement in ADLs. Procedures Performed: none Results and Findings: Lab Pending Results 08/05/18 14:17: ESR 85 H 08/05/18 14:33: WBC 11.3 H, RBC 4.54, Hgb 14.1, Hct 42.5, MCV 93.6, MCH 31.1 H, MCHC 33.2, RDW 12.3, Plt Count 241, MPV 11.1, Immature Gran % (Auto) 0.20, Immature Gran # (Auto) 0.02, Neutrophils % 80.5 H, Lymphocytes % 11.6 L, Monocytes % 7.0, Eosinophils % 0.3, Basophils % 0.4, Nucleated RBC % 0.0, Neutrophils # 9.1 H, Lymphocytes # 1.31 L, Monocytes # 0.8, Eosinophils # 0.0, Absolute Basophils 0.1 08/05/18 14:33: Sodium 139, Plasma Sodium 139, Potassium 3.9, Chloride 101, Carbon Dioxide 25.6, Anion Gap 16.3 H, BUN 17, Creatinine 0.83, Est GFR (Non-Af Amer) 72, BUN/Creatinine Ratio 20.5, Random Glucose 103, Calcium 9.4, Calcium Adj for Albumin 9.6, Total Bilirubin 0.7, AST 32, ALT 25, Alkaline Phosphatase 191 H, Total Protein 7.9, Albumin 3.4 08/05/18 14:45: PT 12.4 H, INR (Anticoag Therapy) 1.26 H, PTT ([place]) 18.9 L 08/05/18 14:48: Troponin I 0.029, C-Reactive Prot, Quant 3.2 H 08/05/18 15:07: Urine Color Yellow, Urine Appearance Clear, Urine pH 6.5, Ur Specific [place] 1.025, Urine Protein 100 H, Urine Glucose (UA) Negative, Urine Ketones 5, Urine Blood 5 H, Urine Nitrate Negative, Urine Bilirubin Negative, Prot Sulfosalicylic Acd 3+ H, Urine Urobilinogen Normal, Ur Leukocyte Esterase Negative, Urine RBC 0-5, Urine WBC None seen, Ur Epithelial Cells None seen, Urine Bacteria None seen, Urine Culture Comments No culture indicated 08/06/18 06:10: WBC 11.1 H, RBC 4.22, Hgb 13.1, Hct 39.2, MCV 92.9, MCH 31.0, MCHC 33.4, RDW 12.2, Plt Count 258, MPV 11.4, Immature Gran % (Auto) 0.30, Immature Gran # (Auto) 0.03, Neutrophils % 80.8 H, Lymphocytes % 9.2 L, Monocytes % 8.9, Eosinophils % 0.3, Basophils % 0.5, Nucleated RBC % 0.0, Neutrophils # 9.0 H, Lymphocytes # 1.02 L, Monocytes # 1.0, Eosinophils # 0.0, Absolute Basophils 0.1 08/06/18 06:10: Sodium 140, Plasma Sodium 140, Potassium 3.2 L, Chloride 101, Carbon Dioxide 26.3, Anion Gap 15.9 H, BUN 14, Creatinine 0.81, Est GFR (Non-Af Amer) 74, BUN/Creatinine Ratio 17.3, Random Glucose 101, Calcium 9.0, Calcium Adj for Albumin 9.5, Total Bilirubin 1.0, AST 28, ALT 25, Alkaline Phosphatase 177 H, Total Protein 7.4, Albumin 3.0 L 08/07/18 05:50: Sodium 140, Plasma Sodium 140, Potassium 3.3 L, Chloride 103, Carbon Dioxide 24.9, Anion Gap 15.4 H, BUN 20, Creatinine 0.87, Est GFR (Non-Af Amer) 68, BUN/Creatinine Ratio 23.0 H, Random Glucose 97, Calcium 8.9, Calcium Adj for Albumin 9.7, Total Bilirubin 1.0, AST 25, ALT 22, Alkaline Phosphatase 170, Total Protein 7.0, Albumin 2.6 L 08/08/18 05:55: WBC 11.5 H, RBC 4.12 L, Hgb 12.7, Hct 38.7, MCV 93.9, MCH 30.8, MCHC 32.8, RDW 12.1, Plt Count 276, MPV 11.5, Immature Gran % (Auto) 0.30, Immature Gran # (Auto) 0.04 H, Neutrophils % 79.8 H, Lymphocytes % 11.3 L, Monocytes % 7.8, Eosinophils % 0.4, Basophils % 0.4, Nucleated RBC % 0.0, Neutrophils # 9.1 H, Lymphocytes # 1.30 L, Monocytes # 0.9, Eosinophils # 0.1, Absolute Basophils 0.1 08/08/18 05:55: Sodium 142, Plasma Sodium 142, Potassium 3.6, Chloride 105, Carbon Dioxide 23.9 L, Anion Gap 16.7 H, BUN 19, Creatinine 0.81, Est GFR (Non- Af Amer) 74, BUN/Creatinine Ratio 23.5 H, Random Glucose 92, Calcium 8.6, Calcium Adj for Albumin 9.4, Total Bilirubin 0.6, AST 25, ALT 22, Alkaline Phosphatase 180 H, Total Protein 7.2, Albumin 2.6 L Discharge [facility]: [facility] Disposition: Intermediate Care Facility [facility] Condition: Fair Level of Care: ICF Discharge Activity: Activity as tolerated Discharge Diet: General/regular food Referrals: Justo Olivo DO [Primary Care Provider] - Additional Patient Instructions (free text): PT/OT/ST eval and treat under Part B. Prescriptions (Any new or edited meds): amLODIPine BESYLATE [Norvasc] 10 mg PO DAILY #30 tab Docusate Sodium [Colace Clear] 100 mg PO DAILY #60 cap Lisinopril [Zestril] 5 mg PO DAILY #30 tab Sennosides [Vegetable Laxative] 8.6 mg PO DAILY #30 tab Complete Home Medications List: Complete Home Medication List: Bupropion HCl [Wellbutrin Xl] 150 mg PO DAILY 11/14/13 Lamotrigine [Lamictal] 100 mg PO BID 04/24/17 potassium chloride ER 10 mEq tablet,extended release 10 meq PO BID #60 tab 08/29/18 levothyroxine 50 mcg tablet 50 mcg PO DAILY #90 tab 05/12/18 omeprazole 40 mg capsule,delayed release 40 mg PO DAILY #90 cap 06/15/18 Atenolol [Tenormin] 50 mg PO BID 08/05/18 Atorvastatin Calcium 40 mg PO DAILY 08/05/18 Acetaminophen [Tylenol] 650 mg PO Q6H PRN tab 08/09/18 Docusate Sodium [Colace Clear] 100 mg PO DAILY #60 cap 08/09/18 Lisinopril [Zestril] 5 mg PO DAILY #30 tab 08/09/18 Sennosides [Vegetable Laxative] 8.6 mg PO DAILY #30 tab 08/09/18 amLODIPine BESYLATE [Norvasc] 10 mg PO DAILY #30 tab 08/09/18
--- NOTE | 2018-08-09 14:12 | PN ---
Subjective - Date and Time Seen Date: 08/08/18 Time: 08:00 Subjective Narrative: Jelena continues to do well and unchanged. Apparently the [facility] is to come see her this afternoon. Her son is trying to arrange for placement for her. Medically she is stable and we've had no other problems with her blood pressure. Objective - Review of Systems Generalized/Overall Review: Reports: Weakness EENTM: Reports: No Symptoms Reported Respiratory: Reports: No Symptoms Reported Cardiac: Reports: No Symptoms Reported Abdominal: Reports: No Symptoms Reported Genitourinary Symptoms: Reports: No Symptoms Reported Musculoskeletal Complaints: Reports: Other - Muscle weakness Neurological: Reports: Anxiety, Depressed, Emotional Problems, Weakness Skin: Reports: No Symptoms Reported Endocrine: Reports: No Symptoms Reported - Vitals Vitals: Last Vital Signs Temp 36.3 C 08/09/18 09:34 Pulse 68 08/09/18 10:15 Resp 20 08/09/18 09:34 BP 174/72 H 08/09/18 10:15 Pulse Ox 98 08/09/18 09:34 - Exam Constitutional: Present: Alert, Oriented x3, Cooperative, Well nourished, No distress ENT Exam: Present: normal ENT inspection, hearing grossly normal, pharynx normal, TMs normal Neck: Present: non-tender, full range of motion, supple, normal inspection Breasts: Present: Exam deferred Respiratory: Present: chest non-tender, lungs clear, normal breath sounds, no respiratory distress, no accessory muscle use Cardiovascular/Chest: Present: normal peripheral pulses, regular rate, rhythm, no chest tenderness, no edema, no gallop, no JVD, no murmur, no rub Abdomen: Present: Normal bowel sounds, soft, nontender, nondistended, no rebound tenderness, no hepatospenomegaly, no masses /Rectal: Present: Exam deferred Extremity: Present: normal range of motion, non-tender, normal inspection, no pedal edema, no calf tenderness, normal capillary refill Skin Exam: Present: normal color, warm/dry, no cyanosis, cool/dry, diaphoresis Lymphatic: Present: no adenopathy Neurologic: Present: street light mechanic II-XII nml as tested Appearance: Present: appropriate appearance Eye contact: Present: cooperative, avoids eye contact, decreased rate of speech Thoughts: Present: normal thought pattern, no apparent hallucination Assessment/Plan Plan Narrative: 1. Continue to try to get placed into intermediate care or assisted living. 2. No repeating lab tomorrow. 3. Continue to assist in ambulation. - Problems/Diagnosis (1) Mental status alteration Problem: Resolved Qualifiers: Altered mental status type: transient alteration of awareness Qualified Code(s): R40.4 - Transient alteration of awareness (2) Weakness Problem: Acute (3) Frequent falls Problem: Acute (4) Declining mobility Problem: Chronic (5) Muscle weakness Problem: Chronic (6) Fatigue Problem: Chronic Qualifiers: Fatigue type: chronic, unspecified Qualified Code(s): R53.82 - Chronic fatigue, unspecified
--- NOTE | 2018-08-09 14:22 | PN ---
Casie Note - Interim Date: 08/08/18 Time: 18:30 Narrative: 08/09/18 14:20 I came back this evening to see Jelena and she seems to be stable alert and conversant. Her son had been here earlier but has left. We had hoped to visit with each other. He is working on placement for her in assisted living. [facility] came by today and has decided not to accept. Apparently the reason was she wasn't mobile enough. On the arrived she was asleep and had to be awakened and she was still sleepy and sluggish. After [facility] left she walked full length of the white without difficulty. I think she would've been ideal placement for assisted living but apparently it is not to be. Also the [facility] has refused to accept her for reasons I'm not sure. Therefore, she will be here again tonight and will try again tomorrow.
[2018-08-09 15:10] VITALS: BP 128/83
== END 2018-08-09 15:40 ==
LOC: ER 14:08 → MS 14:08
PROVIDERS: ADMIT Family Medicine; ATTEND Family Medicine
CPT/HCPCS: 36415; 70450; 71010; 71045; 80053; 81001; 84080; 84484; 85025; 85610; 85652; 85730; 86038; 86140; 86431; 93005; 96360; 96361; 97110; 97116; 97161; 97165; 97530; 99285; G0378

== ENCOUNTER 2018-08-29 14:45 | Observation (INO) ==
[2018-08-29] MEDS ORDERED: NORMAL SALINE 1,000 ML IV ONE (15:02)
[2018-08-29] MEDS ORDERED: MORPHINE SULFATE 2 MG/ML DISP.SYRIN IV ONE (15:02)
[2018-08-29 15:31] LABS: Hematocrit 41.5 % (37.0-47.0); Hemoglobin 13.2 gm/dL (12.5-16.0); Mean Cell Volume 95.6 fl (78-100); Mean Corpuscular Hemoglobin 30.4 pg (27-31); Mean Corpuscular Hgb Conc 31.8 g/dl (32-36); Mean Platelet Volume 11.1 fl (8-12.5); Neutrophil # 8.7 K/mm3 (1.3-6.0); Neutrophil % 79.2 % (42-75.0); Platelet Count 292 K/mm3 (150-450); Red Blood Count 4.34 M/mm3 (4.2-5.4); Red Cell Distribution Width 11.9 % (11.5-14.0); White Blood Count 10.9 K/mm3 (4.0-10.5)
[2018-08-29 15:56] LABS: ALT 63 U/L (19-67); AST 40 U/L (0-48); Albumin * 2.7 gm/dl (3.4-5.0); Alkaline Phosphatase * 262 U/L (50-170); Anion Gap 12.9 mmol/L (6.8-13.8); BUN/Creatinine Ratio 13.5 (9.0-21.6); Bilirubin, Total 0.8 mg/dL (0.0-1.1); Blood Urea Nitrogen 12 mg/dL (3-23); Ca. Corrected For Albumin 10.7 mg/dL (8.4-10.2); Carbon Dioxide 29.5 mmol/L (24-32.6); Chloride 98 mmol/L (97-106); Glucose * 97 mg/dL (70-110); Lipase 91 U/L (73-393); Potassium 4.4 mmol/L (3.4-4.6); Sodium 136 mmol/L (132-142); Troponin I Less than 0.017 ng/mL (0.00-0.10)
[2018-08-29 16:39] LABS: Urine Bilirubin Negative (NEGATIVE); Urine Blood Negative /ul (NEGATIVE); Urine Ketone Negative (NEGATIVE); Urine Nitrite Negative (NEGATIVE); Urine Protein Negative (NEGATIVE); Urine Specific Gravity 1.015 SP.GR. (1.005-1.010); Urine Urobilinogen Normal (NORMAL); Urine pH 7.5 pH (5.0-7.0)
[2018-08-29 16:51] LABS: Urine Appearance Clear (CLEAR); Urine Bacteria 2+; Urine Color Yellow; Urine RBC 0-5 /hpf (0-5); Urine WBC 0-5 /hpf (0-5)
[2018-08-29] MEDS ORDERED: MORPHINE SULFATE 2 MG/ML DISP.SYRIN ONE (16:55)
[2018-08-29] MEDS ORDERED: MORPHINE SULFATE 4 MG/ML SYRG IV ONE (18:40)
--- NOTE | 2018-08-29 19:21 | ERNOTE ---
Abdominal HPI - Narrative Date of Service: 08/29/18 - General Chief Complaint: Abdominal Pain Time Seen by Provider: 08/29/18 14:56 Source: patient Exam Limitations: no limitations - Immun/Allergies/Home Medications Immunizatons: IMMUNIZATION HX Immunizations Up to Date Yes History of Influenza Vaccine More Information Required Hx Pneumococcal Vaccination More Information Required Allergies/Adverse Reactions: Allergies perfume Allergy (Mild, Verified 08/29/18 15:04) migraines soap Allergy (Mild, Verified 08/29/18 15:04) migraines Home Medications: HOME MEDICATIONS Bupropion HCl [Wellbutrin Xl] 150 mg PO DAILY 11/14/13 [Last Taken 11/08/17] Lamotrigine [Lamictal] 100 mg PO BID 04/24/17 [Last Taken 11/08/17] potassium chloride ER 10 mEq tablet,extended release 10 meq PO BID #60 tab 02/09/18 [Last Taken Unknown] levothyroxine 50 mcg tablet 50 mcg PO DAILY #90 tab 05/12/18 [Last Taken Unknown] omeprazole 40 mg capsule,delayed release 40 mg PO DAILY #90 cap 06/15/18 [Last Taken Unknown] Atenolol [Tenormin] 50 mg PO BID 08/05/18 [Last Taken Unknown] Atorvastatin Calcium 40 mg PO DAILY 08/05/18 [Last Taken Unknown] Acetaminophen [Tylenol] 650 mg PO Q6H PRN tab 08/09/18 [Last Taken Unknown] Docusate Sodium [Colace Clear] 100 mg PO DAILY #60 cap 08/09/18 [Last Taken Unknown] Lisinopril [Zestril] 5 mg PO DAILY #30 tab 08/09/18 [Last Taken Unknown] Sennosides [Vegetable Laxative] 8.6 mg PO DAILY #30 tab 08/09/18 [Last Taken Unknown] amLODIPine BESYLATE [Norvasc] 10 mg PO DAILY #30 tab 08/09/18 [Last Taken Unknown] nicotine 14 mg/24 hr daily transdermal patch 1 patch TRANSDERMAL DAILY #21 ea 08/19/18 [Last Taken Unknown] - History of Present Illness Narrative: Patient presents for severe left back and abdominal pain. It is unclear how long this has been going on. She had had some recent falls but nothing that apparently initiated this. She has a Hx of AAA so with her severe pain was brought in via EMS. No fever or vomiting. No apparent urine Sx. Left sided abd and back pain. This is worse with movement. Timing: getting worse, other - intermittent, fluctuating intensity Quality: severe, sharpness Activities at Onset: other - unknown Modifying Factors - (Improves): Present: other - nothing Modifying Factors - (Worsens): Present: movement Associated Symptoms: Absent: chest pain, fever/chills, vomiting, shortness of breath, swelling/mass in abdomen Prior Abdominal Problems: Absent: similar symptoms Prior Treatment: Absent: recently seen Review of Systems - Narrative Narrative: complicated d/t patient condition - Review of Systems Constitutional: Absent: fever Respiratory: Absent: shortness of breath Cardiology: Absent: chest pain Gastrointestinal/Abdominal: Present: abdominal pain Genitourinary: Absent: dysuria Skin: Absent: rash All Other Systems: All systems neg except as marked Medical History (Last Reviewed 08/29/18 @ 19:42 by Calos Bolanos MD) Dyspnea on exertion (Acute) Jelena had 1 episode toward the end of a PT visit where she suddenly became SOB. It lasted 5-10 min. There were no other symptoms and specifically denies any CP. BP was up a little in PT but is normal today. Falling episodes (Chronic) Declining mobility (Chronic) Muscle weakness (Chronic) Flu-like symptoms (Acute) Fatigue (Chronic) Onset ~ 1mo. ago. Has progressively worsened. low back pain getting worse. Raynauds phenomenon (Chronic) Onset Date: Unknown Hypothyroidism (Chronic) Onset Date: Unknown Hypertension (Chronic) Onset Date: Unknown mild to moderate Hyperlipidemia due to dietary fat intake (Chronic) Onset Date: Unknown Bipolar disorder (Chronic) Onset Date: Unknown Breakdowns in 1988 & 2001 AAA (abdominal aortic aneurysm) Onset Date: 04/02/16 Atherosclerotic occlusive disease Onset Date: Unknown Postmenopausal atrophic vaginitis Onset Date: 07/16/15 Cataract Onset Date: Unknown Myocardial infarction Onset Date: 2002 Surgical History: Surgical History (Last Reviewed 08/29/18 @ 19:42 by Calos Bolanos MD) History of aortic valve replacement with bioprosthetic valve Onset Date: 07/22/15 Hx of bladder repair surgery Onset Date: Unknown Hx of cholecystectomy Onset Date: 04/01/84 Hx of colonoscopy Onset Date: 11/09/17 - sofía bruno. Recheck in 10 years Hx of colonoscopy with polypectomy Onset Date: 09/23/06 - hyperplastic polyp. Acute/chronic inflammation suggesting ulcerative colitis Hx of hysterectomy Onset Date: 06/01/87 ANDRE, LSO Hx of tonsillectomy Onset Date: Unknown Hx of tubal ligation Onset Date: 05/02/81 Family History: Family History (Last Reviewed 08/29/18 @ 19:42 by Calos Bolanos MD) Father , at 62 CAD (coronary artery disease) Mother , in her 90s Dementia Brother CVA (cerebral vascular accident) Brother Dementia Social History: Preferred Language Serbian Do you have any uatsdin or No cultural preference? Smoking Status Smoker, status unknown Abuse History No History of abuse Psych History Hx of Bipolar Disorder Alcohol Use none Drug Use none (Last Updated 07/06/18 @ 13:56 by Justo Olivo DO) No Social History Section defined Physical Exam - Physical Exam General Appearance: Present: alert, no apparent distress Head Exam: Present: normal inspection, no evidence of injury Eye Exam: Normal inspection: bilateral Ears, Nose, Throat: Present: normal ENT inspection Neck: Present: normal inspection Respiratory: Present: no respiratory distress, normal breath sounds, no accessory muscle use, lungs clear Cardiovascular/Chest: Present: regular rate, rhythm, normal peripheral pulses Gastrointestinal/Abdominal: Present: normal bowel sounds, nondistended, soft, other - some tenderness left upper abdomen. Tendernss left flank area. Back Exam: Present: other - tendenress musclature left CVA area abd left mid back that is severe Extremity Exam: Present: other - no deformity, good distal pulses. Neurological Exam: Present: alert, other - no acute unnilateral focal motor or sensory deficits Skin Exam: Present: normal color, warm/dry Progress - Results and Orders Patient's Lab Results:: I have reviewed the patient's lab results. - Vital Signs Patient's Vital Signs:: I have reviewed the patient's vital signs. Vital Signs: Vital Signs 08/29/18 14:59 08/29/18 15:33 08/29/18 16:03 Temperature 36.6 C 36.6 C 36.6 C Pulse Rate 71 71 71 Respiratory Rate 14 14 14 Blood Pressure 130/75 168/70 H 168/70 H O2 Sat by Pulse Oximetry 96 96 96 08/29/18 16:33 08/29/18 17:03 Temperature Pulse Rate Respiratory Rate Blood Pressure 154/75 H 169/72 H O2 Sat by Pulse Oximetry - EKG EKG #1 EKG: NSR EKG read: Interp. by me EKG Comments: NSR rate 71. Non-specific, no STEMI - CT/Ultrasound CT/Ultrasound Narrative: I reviewed the official radiology report for CT abd pelvis\ - Progress/Reassessment Chief Complaint: Abdominal Pain Progress Note-Subjective: 08/29/18 19:45 patient had severe pain that was intractable despite repeated doses of morphine. CT reviewed with vascular surgery at [facility] via consult line, the increased intraluminal clot is not of acute concern per vascular surgeon at [facility]. She does have severe pain that seems to be musculoskeletal and has an apparent new compression fracture in the T spine that may be the etiology. She had too much pain to go home. I discussed the case with Dr Mark who saw the patient in the ED for admission. Departure Clinical Impression: Intractable pain, Compression fracture, AAA (abdominal aortic aneurysm) without rupture - Departure Disposition: Still a patient Condition: Stable Referrals: Justo Olivo DO [Primary Care Provider] -
[2018-08-29] MEDS ORDERED: ONDANSETRON HCL/PF 2 MG/ML VIAL IV ONE (19:42)
--- NOTE | 2018-08-29 20:29 | HP ---
Chief Complaint - Chief Complaint Date of Service: 08/29/18 Time of Service: 19:10 Chief Complaint: Back pain History of Present Illness: 73-year-old female with a past medical history of AAA, bipolar disorder, multiple falls, hypothyroidism, myocardial infarct, hypertension, Rinade's presents with complaints of back pain. She is unable to ambulate and needs assistance of 2 people in order to be up get out of bed. Son is at bedside and states that she has had repeated falls over the past 3 weeks most recent fall was 2-3 days ago. In the ER she had a CT scan that was reviewed by the vascular surgery team at the [facility], there was an increased intraluminal thrombus that was non-concerning to them. CT scan also showed a new compression fracture in the thoracic spine which is the likely etiology of her pain. She is been given morphine in the emergency department with some relief of her pain. Medical History (Last Reviewed 08/29/18 @ 19:42 by Calos Bolanos MD) Dyspnea on exertion (Acute) Jelena had 1 episode toward the end of a PT visit where she suddenly became SOB. It lasted 5-10 min. There were no other symptoms and specifically denies any CP. BP was up a little in PT but is normal today. Falling episodes (Chronic) Declining mobility (Chronic) Muscle weakness (Chronic) Flu-like symptoms (Acute) Fatigue (Chronic) Onset ~ 1mo. ago. Has progressively worsened. low back pain getting worse. Raynauds phenomenon (Chronic) Onset Date: Unknown Hypothyroidism (Chronic) Onset Date: Unknown Hypertension (Chronic) Onset Date: Unknown mild to moderate Hyperlipidemia due to dietary fat intake (Chronic) Onset Date: Unknown Bipolar disorder (Chronic) Onset Date: Unknown Breakdowns in 1988 & 2001 AAA (abdominal aortic aneurysm) Onset Date: 04/02/16 Atherosclerotic occlusive disease Onset Date: Unknown Postmenopausal atrophic vaginitis Onset Date: 07/16/15 Cataract Onset Date: Unknown Myocardial infarction Onset Date: 2002 Surgical History: Surgical History (Last Reviewed 08/29/18 @ 19:42 by Calos Bolanos MD) History of aortic valve replacement with bioprosthetic valve Onset Date: 07/22/15 Hx of bladder repair surgery Onset Date: Unknown Hx of cholecystectomy Onset Date: 04/01/84 Hx of colonoscopy Onset Date: 11/09/17 Dr.Bagan- sofía bruno. Recheck in 10 years Hx of colonoscopy with polypectomy Onset Date: 09/23/06 - hyperplastic polyp. Acute/chronic inflammation suggesting ulcerative colitis Hx of hysterectomy Onset Date: 06/01/87 ANDRE, LSO Hx of tonsillectomy Onset Date: Unknown Hx of tubal ligation Onset Date: 05/02/81 Family History: Family History (Last Reviewed 08/29/18 @ 19:42 by Calos Bolanos MD) Father , at 62 CAD (coronary artery disease) Mother , in her 90s Dementia Brother CVA (cerebral vascular accident) Brother Dementia Social History: Preferred Language Sierra Leonean Do you have any buddhist or No cultural preference? Smoking Status Smoker, status unknown Abuse History No History of abuse Psych History Hx of Bipolar Disorder Alcohol Use none Drug Use none (Last Updated 07/06/18 @ 13:56 by Justo Olivo DO) No Social History Section defined Review Of Systems (GEN) - Review of Systems Generalized/Overall Review: Absent: Fever Respiratory: Absent: Shortness of Breath Cardiac: Absent: Chest Pain Musculoskeletal: Present: Back Pain Misc: All systems neg except as marked Immunizations: IMMUNIZATION HX Immunizations Up to Date Yes History of Influenza Vaccine More Information Required Hx Pneumococcal Vaccination More Information Required Allergies/Adverse Reactions: Allergies Allergy/AdvReac Type Severity Reaction Status Date / Time perfume Allergy Mild migraines Verified 08/29/18 15:04 soap Allergy Mild migraines Verified 08/29/18 15:04 Home Medications: HOME MEDICATIONS Bupropion HCl [Wellbutrin Xl] 150 mg PO DAILY 11/14/13 [Last Taken 11/08/17] Lamotrigine [Lamictal] 100 mg PO BID 04/24/17 [Last Taken 11/08/17] potassium chloride ER 10 mEq tablet,extended release 10 meq PO BID #60 tab 0 02/09/18 [Last Taken Unknown] levothyroxine 50 mcg tablet 50 mcg PO DAILY #90 tab 05/12/18 [Last Taken Unknown] omeprazole 40 mg capsule,delayed release 40 mg PO DAILY #90 cap 06/15/18 [Last Taken Unknown] Atenolol [Tenormin] 50 mg PO BID 08/05/18 [Last Taken Unknown] Atorvastatin Calcium 40 mg PO DAILY 08/05/18 [Last Taken Unknown] Acetaminophen [Tylenol] 650 mg PO Q6H PRN tab 08/09/18 [Last Taken Unknown] Docusate Sodium [Colace Clear] 100 mg PO DAILY #60 cap 08/09/18 [Last Taken Unknown] Lisinopril [Zestril] 5 mg PO DAILY #30 tab 08/09/18 [Last Taken Unknown] Sennosides [Vegetable Laxative] 8.6 mg PO DAILY #30 tab 08/09/18 [Last Taken Unknown] amLODIPine BESYLATE [Norvasc] 10 mg PO DAILY #30 tab 08/09/18 [Last Taken Unknown] nicotine 14 mg/24 hr daily transdermal patch 1 patch TRANSDERMAL DAILY #21 ea 08/19/18 [Last Taken Unknown] Exam - Exam Vital Signs: Vital Signs - Last Taken Temp 36.6 C 08/29/18 16:03 Pulse 71 08/29/18 16:03 Resp 14 08/29/18 16:03 BP 169/72 H 08/29/18 17:03 Pulse Ox 96 08/29/18 16:03 Constitutional: Present: Cooperative, Well developed, Well nourished, No distress, Lethargic, Elderly ENT Exam: Present: hearing grossly normal, dry mucous membranes Eye Exam: left eye: normal inspection Neck: Present: supple. Absent: lymphadenopathy (R), lymphadenopathy (L) Respiratory: Present: lungs clear, No wheezing. Absent: crackles, rhonchi Cardiovascular/Chest: Present: normal peripheral pulses, regular rate, rhythm, no edema Peripheral Pulses: dorsalis-pedis (R): 1+, dorsalis-pedis (L): 1+ Abdomen: Present: Normal bowel sounds, soft, nontender Extremity: Present: normal inspection, no pedal edema Skin Exam: Present: normal color, warm/dry Neurologic: Present: depressed affect Appearance: Present: appropriate appearance, impaired insight Eye contact: Present: cooperative Thoughts: Absent: normal mood /affect Diagnostic Studies: Abnormal Lab Results 08/29/18 08/29/18 08/29/18 Range/Units 15:25 15:25 16:30 WBC 10.9 H (4.0-10.5) K/mm3 MCHC 31.8 L (32-36) g/dl Neutrophils % 79.2 H (42-75.0) % Lymphocytes % 11.6 L (20-51) % Neutrophils # 8.7 H (1.3-6.0) K/mm3 Lymphocytes # 1.27 L (1.5-3.5) k/mm3 Calcium Adj for Albumin 10.7 H (8.4-10.2) mg/dL Alkaline Phosphatase 262 H (50-170) U/L Albumin 2.7 L (3.4-5.0) gm/dl Urine Bacteria 2+ H (NONE) Laboratory Results WBC 10.9 K/mm3 (4.0-10.5) H 08/29/18 15:25 RBC 4.34 M/mm3 (4.2-5.4) 08/29/18 15:25 Hgb 13.2 gm/dL (12.5-16.0) 08/29/18 15:25 Hct 41.5 % (37.0-47.0) 08/29/18 15:25 MCV 95.6 fl (78-100) 08/29/18 15:25 MCH 30.4 pg (27-31) 08/29/18 15:25 MCHC 31.8 g/dl (32-36) L 08/29/18 15:25 RDW 11.9 % (11.5-14.0) 08/29/18 15:25 Plt Count 292 K/mm3 (150-450) 08/29/18 15:25 MPV 11.1 fl (8-12.5) 08/29/18 15:25 Immature Gran % (Auto) 0.30 % (0.001-0.429) 08/29/18 15:25 Immature Gran # (Auto) 0.03 K/mm3 (0.000-0.0310) 08/29/18 15:25 Neutrophils % 79.2 % (42-75.0) H 08/29/18 15:25 Lymphocytes % 11.6 % (20-51) L 08/29/18 15:25 Monocytes % 7.9 % (0.0-9) 08/29/18 15:25 Eosinophils % 0.6 % (0.0-3.0) 08/29/18 15:25 Basophils % 0.4 % (0.0-1.0) 08/29/18 15:25 Nucleated RBC % 0.0 k/mm3 (0-1) 08/29/18 15:25 Neutrophils # 8.7 K/mm3 (1.3-6.0) H 08/29/18 15:25 Lymphocytes # 1.27 k/mm3 (1.5-3.5) L 08/29/18 15:25 Monocytes # 0.9 k/mm3 (0.0-1.0) 08/29/18 15:25 Eosinophils # 0.1 k/mm3 (0.0-0.7) 08/29/18 15:25 Absolute Basophils 0.0 k/mm3 (0.0-0.1) 08/29/18 15:25 Sodium 136 mmol/L (132-142) 08/29/18 15:25 Plasma Sodium 136 mmol/L (130-142) 08/29/18 15:25 Potassium 4.4 mmol/L (3.4-4.6) D 08/29/18 15:25 Chloride 98 mmol/L (97-106) 08/29/18 15:25 Carbon Dioxide 29.5 mmol/L (24-32.6) 08/29/18 15:25 Anion Gap 12.9 mmol/L (6.8-13.8) 08/29/18 15:25 BUN 12 mg/dL (3-23) 08/29/18 15:25 Creatinine 0.89 mg/dL (0.4-1.4) 08/29/18 15:25 Est GFR (Non-Af Amer) 66 mL/min (60-130) 08/29/18 15:25 BUN/Creatinine Ratio 13.5 (9.0-21.6) 08/29/18 15:25 Random Glucose 97 mg/dL (70-110) 08/29/18 15:25 Calcium 10.0 mg/dL (7.9-10.9) 08/29/18 15:25 Calcium Adj for Albumin 10.7 mg/dL (8.4-10.2) H 08/29/18 15:25 Total Bilirubin 0.8 mg/dL (0.0-1.1) 08/29/18 15:25 AST 40 U/L (0-48) 08/29/18 15:25 ALT 63 U/L (19-67) 08/29/18 15:25 Alkaline Phosphatase 262 U/L (50-170) H 08/29/18 15:25 Troponin I Less than 0.017 ng/mL (0.00-0.10) 08/29/18 15:25 Total Protein 8.0 gm/dL (6.2-8.2) 08/29/18 15:25 Albumin 2.7 gm/dl (3.4-5.0) L 08/29/18 15:25 Lipase 91 U/L (73-393) 08/29/18 15:25 Urine Color Yellow 08/29/18 16:30 Urine Appearance Clear (CLEAR) 08/29/18 16:30 Urine pH 7.5 pH (5.0-7.0) 08/29/18 16:30 Ur Specific [place] 1.015 SP.GR. (1.005-1.010) 08/29/18 16:30 Urine Protein Negative mg/dL (NEGATIVE) 08/29/18 16:30 Urine Glucose (UA) Negative mg/dL (NEGATIVE) 08/29/18 16:30 Urine Ketones Negative mg/dL (NEGATIVE) 08/29/18 16:30 Urine Blood Negative /ul (NEGATIVE) 08/29/18 16:30 Urine Nitrate Negative (NEGATIVE) 08/29/18 16:30 Urine Bilirubin Negative mg/dl (NEGATIVE) 08/29/18 16:30 Urine Urobilinogen Normal EU/dl (NORMAL) 08/29/18 16:30 Ur Leukocyte Esterase Negative /ul (NEGATIVE) 08/29/18 16:30 Urine RBC 0-5 /hpf (0-5) 08/29/18 16:30 Urine WBC 0-5 /hpf (0-5) 08/29/18 16:30 Ur Epithelial Cells 0-5 /hpf (0-5) 08/29/18 16:30 Urine Bacteria 2+ (NONE) H 08/29/18 16:30 Urine Culture Comments No culture indicated 08/29/18 16:30 Assessment/Plan - Narrative Narrative: 73-year-old female with a past medical history of AAA, bipolar disorder, multiple falls, hypothyroidism, myocardial infarct, hypertension, Rinade's presents with complaints of back pain. She is unable to ambulate and needs assistance of 2 people in order to be up get out of bed. Son is at bedside and states that she has had repeated falls over the past 3 weeks most recent fall was 2-3 days ago. In the ER she had a CT scan that was reviewed by the vascular surgery team at the [facility], there was an increased intraluminal thrombus that was non-concerning to them. CT scan also showed a new compression fracture in the thoracic spine which is the likely etiology of her pain. She is been given morphine in the emergency department with some relief of her pain. - Assessment/Plan (1) Compression fracture Assessment: Continue with pain management Problem: Acute (2) Frequent falls Assessment: Son states falls have decreased since being in the [facility]. Problem: Acute (3) Hypothyroidism Assessment: Resume home Problem: Chronic (4) Hypertension Assessment: Restart home meds Problem: Chronic Qualifiers: Hypertension type: essential hypertension
[2018-08-30] MEDS: ATENOLOL 50 MG TABLET PO SCH ×2 (00:45→08:21)
[2018-08-30] MEDS: lamoTRIgine 100 MG TABLET PO SCH ×2 (00:46→08:21)
[2018-08-30] MEDS ORDERED: NORMAL SALINE 1,000 ML IV PRN (02:41)
[2018-08-30] MEDS ORDERED: LEVOTHYROXINE SODIUM 50 MCG TABLET PO SCH (07:00)
[2018-08-30] MEDS ORDERED: LISINOPRIL 5 MG TABLET PO SCH (09:00)
[2018-08-30] MEDS ORDERED: amLODIPine BESYLATE 10 MG TABLET PO SCH (09:00)
[2018-08-30] MEDS ORDERED: buPROPion HCL 150 MG TAB.SR.24H PO SCH (09:00)
--- NOTE | 2018-08-30 13:45 | DS ---
(1) Mental status change Problem: Acute Qualifiers: Altered mental status type: unspecified Qualified Code(s): R41.82 - Altered mental status, unspecified (2) Weakness Problem: Acute (3) Frequent falls Problem: Acute (4) Compression fracture Problem: Acute Description of Stay: No is a 73-year-old female admitted through ER with severe back pain diagnosed with a compression fracture at T5. She is amnestic about events yesterday. Today she has been up and ambulatory to the bathroom and back to her chair reportedly without difficulty. Her but no other constitutional problems. Her son is here and expressed concerns about her repeated falls and wonder if she has had a central event such as stroke. he says she drags her right leg when she is walking. She is currently living at the [facility]. There is some confusion as to what level of physical therapy care she may be getting but I expect very little. I will check into seeing someone in [place] because kyphoplasty procedures. She will require an MRI of thoracic spine which we'll get done as an outpatient. Otherwise no change in assisted meds. Procedures Performed: none Results and Findings: Lab Pending Results 08/29/18 15:25: WBC 10.9 H, RBC 4.34, Hgb 13.2, Hct 41.5, MCV 95.6, MCH 30.4, MCHC 31.8 L, RDW 11.9, Plt Count 292, MPV 11.1, Immature Gran % (Auto) 0.30, Immature Gran # (Auto) 0.03, Neutrophils % 79.2 H, Lymphocytes % 11.6 L, Monocytes % 7.9, Eosinophils % 0.6, Basophils % 0.4, Nucleated RBC % 0.0, Neutrophils # 8.7 H, Lymphocytes # 1.27 L, Monocytes # 0.9, Eosinophils # 0.1, Absolute Basophils 0.0 08/29/18 15:25: Sodium 136, Plasma Sodium 136, Potassium 4.4 D, Chloride 98, Carbon Dioxide 29.5, Anion Gap 12.9, BUN 12, Creatinine 0.89, Est GFR (Non-Af Amer) 66, BUN/Creatinine Ratio 13.5, Random Glucose 97, Calcium 10.0, Calcium Adj for Albumin 10.7 H, Total Bilirubin 0.8, AST 40, ALT 63, Alkaline Phosphatase 262 H, Troponin I Less than 0.017, Total Protein 8.0, Albumin 2.7 L, Lipase 91 08/29/18 16:30: Urine Color Yellow, Urine Appearance Clear, Urine pH 7.5, Ur Specific [place] 1.015, Urine Protein Negative, Urine Glucose (UA) Negative, Urine Ketones Negative, Urine Blood Negative, Urine Nitrate Negative, Urine Bilirubin Negative, Urine Urobilinogen Normal, Ur Leukocyte Esterase Negative, Urine RBC 0-5, Urine WBC 0-5, Ur Epithelial Cells 0-5, Urine Bacteria 2+ H, Urine Culture Comments No culture indicated Discharge Location: [facility] Disposition: Intermediate Care Facility ICF Condition: Stable Level of Care: ICF Discharge Activity: Activity as tolerated Discharge Diet: General/regular food Group Home Therapy: Physicial Therapy Referrals: Justo Olivo DO [Primary Care Provider] - Complete Home Medications List: Complete Home Medication List: Lamotrigine [Lamictal] 100 mg PO BID 04/24/17 potassium chloride ER 10 mEq tablet,extended release 10 meq PO BID #60 tab 02/09/18 Atenolol [Tenormin] 50 mg PO BID 08/05/18 Atorvastatin Calcium 40 mg PO DAILY 08/05/18 nicotine 14 mg/24 hr daily transdermal patch 1 patch TRANSDERMAL DAILY #21 ea 08/19/18 Acetaminophen [Tylenol] 650 mg PO Q6H PRN 08/30/18 Docusate Sodium 100 mg PO DAILY 08/30/18 Levothyroxine Sodium [Synthroid] 50 mcg PO DAILY 08/30/18 Lisinopril [Zestril] 5 mg PO DAILY 08/30/18 Omeprazole 40 mg PO DAILY 08/30/18 Sennosides [Vegetable Laxative] 8.6 mg PO DAILY 08/30/18 amLODIPine BESYLATE [Norvasc] 10 mg PO DAILY 08/30/18 buPROPion HCL [Wellbutrin Xl] 150 mg PO DAILY 08/30/18 Amb Orders for Discharge: MRI Thoracic W/O * Time Frame: 2 Weeks, Location: Radiology
[2018-08-30 14:49] VITALS: BP 113/50
== END 2018-08-30 15:00 ==
LOC: ER 14:45 → MS 14:45
PROVIDERS: ADMIT Internal Medicine; ATTEND Family Medicine
CPT/HCPCS: 36415; 71275; 74175; 80053; 81001; 83690; 84484; 85025; 87081; 93005; 96361; 96374; 96375; 99285; G0378; J2405